=== PATIENT | female | born 1965 | race Caucasian/White ===

== ENCOUNTER → 2017-04-15 19:15 | Outpatient (CLI) | payer OTHER ==
[2015-06-07 09:36] VITALS: BMI 23.6
[~2017-04-15 19:15] MED LIST: ASPIRIN81 MG PO; EFFEXOR XR75 MG; FLUTICASONE PRO16 GM NASAL; HUMALOG 30100 UNITS/; HYDROCODONE-APA1 TAB PO; K-DUR20 MEQ PO; LASIX20 MG PO; LOPRESSOR25 MG PO; NORVASC5 MG PO; PRAVASTATIN SOD10 MG PO; REGLAN10 MG PO; SYNTHROID50 MCG PO; VITAMIN D250000 UNIT
== END | disposition home or self-care (01) ==
LOC: D.LABREF 19:15
DX: Z00.00 Encounter for general adult medical examination without abnormal findings (principal)

== ENCOUNTER 2017-05-09 08:18 | Outpatient (CLI) | payer OTHER ==
[2015-06-07 09:36] VITALS: BMI 23.6
== END 2017-05-09 08:42 ==
LOC: D.MAMMO 08:18
DX: Z12.31 Encounter for screening mammogram for malignant neoplasm of breast (principal)

== ENCOUNTER → 2017-08-01 14:27 | Outpatient (CLI) | payer OTHER ==
[2015-06-07 09:36] VITALS: BMI 23.6
== END | disposition home or self-care (01) ==
LOC: D.CT 14:27
DX: M54.12 Radiculopathy, cervical region (principal)

== ENCOUNTER 2018-05-15 08:00 | Outpatient (CLI) | payer OTHER ==
[2015-06-07 09:36] VITALS: BMI 23.6
== END 2018-05-15 09:00 | disposition home or self-care (01) ==
LOC: D.MAMMO 08:00
DX: Z12.31 Encounter for screening mammogram for malignant neoplasm of breast (principal)

== ENCOUNTER 2019-02-24 10:58 | Outpatient (CLI) | payer OTHER ==
[~2019-02-24] VITALS: Ht 177.8 cm; Wt 65.0 kg
--- NOTE | ~2019-02-24 | HEMODYNAMI ---
PATIENT:MARK VÁSQUEZ MEDICAL RECORD: [id number] : 65 LOCATION:[facility] ADMISSION DATE: 02/24/19 Generatedon:02/24/201915:16 Patient name: MARK VÁSQUEZ Patient #: [id number] SSN: : 1965 Date of study: 02/24/2019 Page: Of Hemodynamic Procedure Report Patient Data Patient Demographics Procedure consent was obtained First Name: MARK Gender: Female Last Name: FAHAD : 1965 Middle Initial: G Age: 53 year(s) Patient #: [id number] Race: Additional ID: [id number] Contact details Address: [address] [place] [address] [place] State: [place] City: [place] Zip code: [address] Past Medical History History of disease Date Diagnosis Comments Hypertension Diabetes Allergies Allergen Reaction Date Comments Reported Codeine 05/30/2015 Admission Admission Data Admission Date: 02/24/2019 Admission Time: 10:58 Procedure Procedure Types Cath Procedure Diagnostic Procedure LHC LHC w/Coronaries w/Grafts Sedation Charges Moderate Sedation up to 30 minutes PCI Procedure Coronary Stent Coronary Stent Initial Procedure Description Procedure Date Procedure Date: 02/24/2019 Procedure Start Time: 14:37 Procedure End Time: 15:12 Procedure Staff Name Function Canelo Rob MD Performing Physician Charlotte Leger RN Culinary Director Delvin Corado RT Scrub Hannah Shehean RT Monitor Procedure Data Cath Procedure Fluoroscopy Diagnostic fluoroscopy Total fluoroscopy Time: 9.2 time: 9.2 min min Diagnostic fluoroscopy Total fluoroscopy dose: 464 dose: 464 mGy mGy Contrast Material Contrast Material Type Amount (ml) Isovue 300 220 Entry Location Entry Primary Successful Side Size Upsize Upsize Entry Closure Succes sful Closure Location (Fr) 1 (Fr) 2 (Fr) Remarks Device Remarks Femoral Right 5 Fr 6 Fr Exoseal artery Short Estimated blood loss: 5 ml Diagnostic catheters Device Type Used For End Catheter Placement MULTIPACK Pigtail 5 Fr LV Angiography catheter MULTIPACK JL 4.0 5Fr Multi-vessel catheter Angiography MULTIPACK 3DRC 5Fr Multi-vessel catheter Angiography DIAGNOSTIC AR MOD 5Fr SVG Angiography Catheter ([id number]) DIAGNOSTIC Pigtail 5Fr Multi-vessel catheter ([id number]) Angiography Procedure Complications No complications Procedure Medications Medication Administration Route Dosage 0.9% NaCl I.V. 100 ml/hr Oxygen etCO2 Nasal cannula 2 l/min Lidocaine 2% added to field 20 Heparin Flush Bag added to field 2 bags (1000units/500ml NS) Versed I.V. 2 mg Fentanyl I.V. 50 mcg Fentanyl I.V. 50 mcg Heparin Bolus I.V. 5000 units Integrilin (Bolus 5.6 2mg/ml) Plavix P.O. 600 mg Cardene I.C. 500 mcg Hemodynamics Rest Heart Rate: 62 (bpm) Pressure Samples Time Site Value (mmHg) Purpose Heart Use Rate(bpm) 14:38 LV 180/9,17 Snapshot 66 14:39 AO 186/78(122) Pullback 70 14:39 LV 177/14,22 Pullback 70 Gradients Valve Time Site 1 Site 2 Mean SEP/DFP Peak To Heart Use (mmHg) (sec/min) Peak Rate (mmHg) (bpm) Aortic 14:39 LV AO 0 3 0 70 177/14,22 186/78(122) Calculations Valve P-P Mean Valve Index Valve Source Name Gradient Area Flow (cm2) Aortic 0 0 0 0 Snapshots Pre Cath Intra NCS Post Cath Vital Signs Time Heart Resp SPO2 etCO2 NIBP (mmHg) Rhythm Pain Sedation Rate (ipm) (%) (mmHg) Status Level (bpm) 14:07:41 63 12 99 39 186/93(159) NSR 0 (11) 10(A) , No pain 14:12:11 58 14 100 41.2 198/83(155) SB 0 (11) 10(A) , No pain 14:16:30 67 11 100 49.4 156/85(134) NSR 0 (11) 10(A) , No pain 14:20:51 59 13 100 45.7 169/80(145) SB 0 (11) 10(A) , No pain 14:25:14 57 13 100 38.9 156/74(127) SB 0 (11) 10(A) , No pain 14:29:38 60 11 100 50.2 154/74(134) NSR 0 (11) 10(A) , No pain 14:34:02 56 14 100 10.5 141/67(111) NSR 0 (11) 9(A) , No pain 14:39:18 64 17 100 49.4 163/76(105) NSR 0 (11) 9(A) , No pain 14:43:40 69 17 100 23.2 179/84(131) NSR 0 (11) 9(A) , No pain 14:48:10 68 10 100 20.2 167/75(128) NSR 0 (11) 9(A) , No pain 14:52:34 68 14 100 49.4 175/82(138) NSR 0 (11) 9(A) , No pain 14:56:52 69 16 100 47.9 156/81(128) NSR 0 (11) 9(A) , No pain 15:01:11 68 10 100 47.9 173/84(141) NSR 0 (11) 9(A) , No pain 15:05:08 72 11 100 24.7 148/75(89) NSR 0 (11) 9(A) , No pain 15:09:22 70 9 100 45.6 134/71(112) NSR 0 (11) 9(A) , No pain Medications Time Medication Route Dose Verified Delivered Reason Notes Effectiveness by by 14:05:58 0.9% NaCl I.V. 100 Canelo Porter used for ml/hr [facility] procedure MD WOODS 14:06:06 Oxygen etCO2 2 Canelo Porter used for Nasal l/min [facility] procedure cannula MD WOODS 14:06:12 Lidocaine 2% added 20ml Canelo Lemos for local to vial [facility] anesthetic field MD PRASAD 14:06:20 Heparin Flush added 2 Canelo Canelo used for Bag to bags [facility] procedure (1000units/500ml field MD PRASAD NS) 14:26:06 Fentanyl I.V. 50 Canelo Charlotte for sedation mcg [facility] MD, RN 14:26:58 Versed I.V. 2 mg Canelo Higginbothamyla for sedation [facility] MD, RN 14:31:48 Fentanyl I.V. 50 Canelo Higginbothamyla for sedation mcg [facility] Leg[facility] MD, RN 14:52:57 Heparin Bolus I.V. 5000 Canelo Charlotte for verif ied units LianeCuauhtemoc Leger anticoagulation with Dr. PRASAD RN Dayana 14:55:15 Integrilin 5.6mL Canelo Porter waste d (Bolus 2mg/ml) ml [facility] 4.4mL MD WOODS 14:55:45 Plavix P.O. 600 Can[address] for mg [facility] Leger antiplatelet RN therapy 15:04:59 Cardene I.C. 500 Canelo Lemos for mcg Liane [facility] Posadas vasodilation MD PRASAD Procedure Log Time Note 14:00:41 Charlotte Leger RN sent for patient. Start room use. 14:05:16 Diagnostic Cath Status : Elective 14:05:58 0.9% NaCl 100 ml/hr I.V. was administered by Charlotte Leger RN; used for procedure; 14:06:06 Oxygen 2 l/min etCO2 Nasal cannula was administered by Charlotte Leger RN; used for procedure; 14:06:12 Lidocaine 2% 20ml vial added to field was administered by Canelo Rob MD; for local anesthetic; 14:06:20 Heparin Flush Bag (1000units/500ml NS) 2 bags added to field was administered by Canelo Rob MD; used for procedure; 14:06:28 Vital chart was started 14:11:33 Informed consent obtained and on chart 14:11:50 Time tracking: Regular hours (M-F 7:00 - 5:00) 14:11:54 Plan of Care:Hemodynamics will remain stable., Cardiac rhythm will remain stable., Comfort level will be maintained., Respiratory function will remain adequate., Patient/ family verbilizes understanding of procedure., Procedure tolerated without complication., Recovers from procedure without complications.. 14:12:01 Patient received from Pre/Post Procedure Room to CCL 1 Alert and oriented. Tansferred to table in Supine position. 14:12:02 Warm blankets applied, and freddy hugger turned on for patient comfort. 14:12:02 Correct patient and procedure confirmed by team. 14:12:03 ECG and BP/O2 sat monitors applied to patient. 14:12:04 Baseline sample Acquired. 14:12:09 Rhythm: sinus rhythm 14:12:10 Full Disclosure recording started 14:12:14 H&P Date Dictated: 02/24/2019 Within 30 days and on chart., H&P Addendum completed by physician on day of procedure. (MUST COMPLETE FOR ALL OUTPATIENTS). 14:12:15 Pre-procedure instructions explained to patient. 14:12:19 Pre-op teaching completed and patient verbalized understanding. 14:12:21 Family in waiting room. 14:12:22 Patient NPO since Midnight. 14:12:24 Is the patient allergic to Iodine/contrast media? No. 14:12:25 Was the patient premedicated? No 14:12:37 Is patient on blood thinner?No 14:12:38 Patient diabetic? Yes. 14:12:44 Previous problem with sedation/anesthesia? Yes nausea 14:12:46 Snore? Yes 14:12:52 Sleep apnea? No 14:12:53 Deviated septum? No 14:12:54 Opens mouth fully? Yes 14:12:55 Sticks out tongue? Yes 14:12:58 Airway obstruction? No ? 14:13:04 Dentures? Yes partials 14:13:40 If diabetic: On Metformin? No 14:24:38 Pre procedure: right dorsailis pedis pulse 2+ Normal; easily identifiable; not easily obliterated 14:24:41 Pre procedure: left dorsailis pedis pulse 2+ Normal; easily identifiable; not easily obliterated 14:24:42 Patient pain scale 0/10 ?. 14:24:54 IV patent on arrival in left forearm with 0.9% NaCl at [facility]. 14:24:56 Lab results completed and on chart. 14:25:02 Right groin area was prepped with chlora-prep and draped in sterile fashion 14:25:04 Alarms reviewed by R. N. 14:25:04 Sharps counted by scrub and verified by R.N. 14:25:06 Physician arrived 14:25:06 --------ALL STOP TIME OUT------ 14:25:07 Final Timeout: patient, procedure, and site verified with staff and physician. All members of the team are in agreement. 14:25:08 Right groin site verified by team. 14:25:12 Maximum allowable Isovue 300 dose 300ml. Physician notified. (300ml for normal creatinines. For patients with creatinine of 1.7 or higher multiply weight(kg) x 5 divided by creatinine.) 14:25:15 Fire Safety Assessment: A--An alcohol-based skin anteseptic being used preoperatively., C--Open oxygen or nitrous oxide is being used., D--An ESU, laser, or fiber-optic light is being used. 14:25:30 Physical assessment completed. ASA score P 2 - A patient with mild systemic disease as per Canelo Rob MD. 14:25:38 Sedation plan: IV Moderate Sedation Medication:Versed, Fentanyl 14:26:06 Fentanyl 50 mcg I.V. was administered by Charlotte Leger RN; for sedation; 14:26:34 Use device set Femoral Dx 14:26:36 ACIST Syringe (62653) opened to sterile field. 14:26:37 Bag Decanter (2002S) opened to sterile field. 14:26:37 Medline Cath Pack ([id number]) opened to sterile field. 14:26:38 DIAGNOSTIC WIRE .035 260cm J wire (902518) opened to sterile field. 14:26:40 ACIST Hand Control (12920) opened to sterile field. 14:26:40 ACIST Manifold (80497) opened to sterile field. 14:26:41 DIAGNOSTIC Multipack 5Fr catheter set (PZ2574) opened to sterile field. 14:26:42 Tegaderm 4 x 4 (1626W) opened to sterile field. 14:26:43 SHEATH 5FR [place] (OOV817) opened to sterile field. 14:26:58 Versed 2 mg I.V. was administered by Charlotte Leger RN; for sedation; 14:31:48 Fentanyl 50 mcg I.V. was administered by Charlotte Leger RN; for sedation; 14:36:44 Zero performed for pressure channel P1 14:37:37 Procedure started. 14:37:56 Local anesthetic to right femoral artery with Lidocaine 2% by Canelo Rob MD.INITIAL ACCESS ONLY 14:38:11 A 5 Fr sheath was inserted into the Right Femoral artery 14:38:20 A MULTIPACK Pigtail 5 Fr catheter was advanced over the wire and used for LV Angiography. 14:38:43 LV hemodynamics recorded. 14:38:46 LV gram done using TEIXEIRA 14:38:48 Injector settings: Ml/sec: 5, Volume: 15, 14:38:59 EF : 55 % 14:39:19 Catheter removed. 14:39:46 A MULTIPACK JL 4.0 5Fr catheter was advanced over the wire and used for Multi-vessel Angiography. 14:40:00 POWELL angiography performed. 14:40:10 LCA angiography performed. 14:40:25 Injector settings: Ml/sec: 3, Volume: 6, 14:41:34 Catheter removed. 14:41:40 A MULTIPACK 3DRC 5Fr catheter was advanced over the wire and used for Multi-vessel Angiography. 14:42:34 RCA angiography performed. 14:42:37 Injector settings: Ml/sec: 3, Volume: 6, 14:43:23 Catheter removed. 14:43:43 A DIAGNOSTIC AR MOD 5Fr Catheter ([id number]) was advanced over the wire and used for SVG Angiography. 14:45:23 Catheter removed. 14:46:11 A DIAGNOSTIC Pigtail 5Fr catheter (996722M) was advanced over the wire and used for Multi-vessel Angiography. 14:46:17 Aortic Root visualized 14:48:48 Catheter removed. 14:49:15 SHEATH 6FR [place] (NYA696) opened to sterile field. 14:49:15 INFLATOR Merit BasixCompak (UN0994) opened to sterile field. 14:49:16 WHISPER 300cm guide wire ([id number]) opened to sterile field. 14:50:59 GUIDE 6FR JR 4.0 catheter ([id number]) opened to sterile field. 14:51:06 Proceeding to intervention. 14:51:20 Sheath upsized to a 6 Fr Short. 14:51:34 6 Fr jr 4 guide catheter was inserted over the wire 14:51:40 Guide Catheter removed. unable to cannulate vessel. 14:52:28 GUIDE 6FR HS I SH catheter ([id number]) opened to sterile field. 14:52:35 6 Fr hs 1 sh guide catheter was inserted over the wire 14:52:57 Heparin Bolus 5000 units I.V. was administered by Charlotte Leger RN; for anticoagulation; verified with Dr. Anne 14:53:25 whisper wire advanced. 14:53:30 Wire advanced across lesion. 14:55:15 Integrilin (Bolus 2mg/ml) 5.6mL ml was administered by Charlotte Leger RN; ; wasted 4.4mL 14:55:28 Inflate balloon Inflation number: 1 A EMERGE OTW 2.5 x 20 balloon ([id number]) was prepped and advanced across the Mid RCA, then inflated to 12 JJ for 0:30 (min:sec). 14:55:45 Plavix 600 mg P.O. was administered by Charlotte Leger RN; for antiplatelet therapy; 14:55:52 Inflation number: 2 The EMERGE OTW 2.5 x 20 balloon ([id number]) was reinflated across the Mid RCA, to 12 JJ for 0:30 (min:sec). 14:56:14 Inflation number: 3 The EMERGE OTW 2.5 x 20 balloon ([id number]) was reinflated across the Mid RCA, to 12 JJ for 0:10 (min:sec). 14:57:08 Balloon removed over the wire. 14:59:37 Place stent Inflation Number: 4 A KALPESH OTW 3.0 x 38 stent ([id number]) was prepped and advanced across the Mid RCA. The stent was deployed at 14 JJ for 0:30 (min:sec). 15:00:40 Stent catheter was removed intact over wire. 15:02:20 Place stent Inflation Number: 5 A KALPESH OTW 3.0 x 30 stent ([id number]) was prepped and advanced across the Mid RCA. The stent was deployed at 14 JJ for 0:30 (min:sec). 15:03:56 Stent catheter was removed intact over wire. 15:04:59 Cardene 500 mcg I.C. was administered by Canelo Rob MD; for vasodilation; 15:09:42 Place stent Inflation Number: 1 A KALPESH RX 3.0 x 26 stent ([id number]) was prepped and advanced across the Prox RCA. The stent was deployed at 14 JJ for 0:30 (min:sec). 15:09:47 Stent catheter was removed intact over wire. 15:09:49 Wire removed. 15:09:49 Guide catheter removed. 15:09:57 EXOSEAL 6Fr (EX600) opened to sterile field. 15:10:43 Sheath removed intact; hemostasis achieved with Exoseal to the Right Femoral artery. 15:10:45 Procedure ended.(Physican Out) 15::57 Fluoroscopy time 09.20 minutes. 15:11:01 Fluoroscopy dose: 464 mGy 15:11: Flurop Dose total: 464 15:11:07 Contrast amount:Isovue 300 220ml. 15:11:20 Sharps counted by scrub and verified by R.N. 15:11:22 Insertion/operative site no bleeding no hematoma. 15:11:26 Post-op/insertion site Right Femoral artery dressed using a 4 x 4 and Tegaderm. 15:11:28 Post Procedure Pulses reassessed and unchanged 15:11:31 Post procedure rhythm: unchanged. 15:11:38 Estimated blood loss: 5 ml 15:11:39 Post procedure instruction explained to patient.Patient verbalizes understanding. 15:11:40 Patient needs reinforcement of post procedure teaching. 15:12:19 Procedure type changed to Cath procedure, Diagnostic procedure, LHC, LHC w/Coronaries w/Grafts, Sedation Charges, Moderate Sedation up to 30 minutes, PCI procedure, Coronary Stent, Coronary Stent Initial 15:12:21 Procedure and supply charges have been captured, reviewed, submitted and are correct. 15:12:26 Procedure Complication : No complications 15:12:28 Vital chart was stopped 15:12:29 See physician's report for complete and final results. 15:12:31 Report given to Pre/Post Procedure Room. 15:12:34 Patient transfered to Pre/Post Procedure Room with Stretcher. 15:12:37 Procedure ended. 15:12:37 Full Disclosure recording stopped 15:12:44 ACC-PCI Only Patient was given prescriptions, or instructed by Charlotte Leger RN to start/continue the following medications upon discharge: Plavix 15:12:46 End room use (Document Last) Intervention Summary Intervention Notes Time ActionType Lesion and Equipment Used Action# Pressure Duration Attributes 14:55:28 Inflate Mid RCA EMERGE OTW 2.5 1 12 00:30 balloon x 20 balloon ([id number]) 14:55:52 Reinflate Mid RCA EMERGE OTW 2.5 2 12 00:30 balloon x 20 balloon ([id number]) 14:56:14 Reinflate Mid RCA EMERGE OTW 2.5 3 12 00:10 balloon x 20 balloon ([id number]) 14:59:37 Place stent Mid RCA KALPESH OTW 3.0 x 4 14 00:30 38 stent ([id number]) 15:02:20 Place stent Mid RCA KALPESH OTW 3.0 x 5 14 00:30 30 stent ([id number]) 15:09:42 Place stent Prox RCA KALPESH RX 3.0 x 1 14 00:30 26 stent ([id number]) Device Usage Item Name Manufacture Quantity Catalog Number Hospital Part Current Minimal Lot# / Charge Number Stock Stock Serial# Code ACIST Syringe Acist 1 80298 265126 570894 275968 20 (31575) Medical Systems Inc Bag Decanter Microtek 1 2001S 267180 97631 750553 5 () Medical Inc. Medline Cath Medline 1 [id number] 758222 33764 813241 5 Pack ([id number]) DIAGNOSTIC St Billy 1 325043 012773 080459 448539 30 WIRE .035 260cm J wire (354824) ACIST Hand Acist 1 17488 251486 483683 222886 5 Control Medical (67651) Systems Inc ACIST Manifold Acist 1 38156 414050 009612 624080 5 (07057) Medical Systems Inc DIAGNOSTIC Cardinal 1 CF3060 846423 54337 260886 30 Multipack 5Fr Health catheter set (II9560) Tegaderm 4 x 4 3M 1 1626W 386178 524027 679057 5 (1626W) SHEATH 5FR Terumo 1 [id number] 431318 334473 307576 5 [place] (XWM457) MULTIPACK Cardinal 1 161672 5 Pigtail 5 Fr Health catheter MULTIPACK JL Cardinal 1 880398 5 4.0 5Fr Health catheter MULTIPACK 3DRC Cardinal 1 849840 5 5Fr catheter Health DIAGNOSTIC AR Cardinal 1 [id number] 251399 459417 435235 15 MOD 5Fr Health Catheter (413724A) DIAGNOSTIC Cardinal 1 141165G 688372 035625 546379 5 Pigtail 5Fr Health catheter (662685Z) SHEATH 6FR Terumo 1 FPQ593 503002 609428 770339 40 [place] (VTP725) INFLATOR Merit Merit 1 IH3196 450091 444260 281301 15 [place] [employer] SSD[employer]Times [facility] (VD5221) WHISPER 300cm Matute 1 [id number] 883982 141589 543913 5 guide wire Vascular (9061255FI) GUIDE 6FR JR Medtronic 1 [id number] 998741 89304 348321 1 4.0 catheter (KA1FY90) GUIDE 6FR HS I Medtronic 1 [id number] 281035 13477 516295 1 SH catheter ([id number]) EMERGE OTW 2.5 [place] 1 [id number] 254271 801146 690943 5 [id number] x 20 balloon Scientific ([id number]) KALPESH OTW 3.0 x Medtronic 1 [id number] 827439 2428827 868346 5 [id number] 38 stent ([id number]) KALPESH OTW 3.0 x Medtronic 1 [id number] 961799 6095438 930109 5 [id number] 30 stent ([id number]) KALPESH RX 3.0 x Medtronic 1 [id number] 407363 0274836 433586 5 [id number] 26 stent ([id number]) EXOSEAL 6Fr Cardinal 1 EX600 205877 955230 349346 10 (EX600) Health Signature Audit [place] Stage Time Signature Unsigned Intra-Procedure 02/24/2019 Hannah Sheehan 3:16:40 PM RT(R) Signatures Monitor : Hannah Sheehan RT Signature : Date : Time : [place] [id number] [facility] [place] [address]
[2019-02-24] MEDS ORDERED: LISINOPRIL10 MG PO (11:21)
[2019-02-24] MEDS ORDERED: DEMEROL100 MG PO (11:21)
[2019-02-24] MEDS ORDERED: FOLBEE PLUS TAB1 TAB PO (11:22)
[2019-02-24] MEDS ORDERED: CRESTOR10 MG PO (11:22)
[2019-02-24 11:34] VITALS: BP 199/84; Ht 177.8 cm; Wt 65.0 kg
[2019-02-24 11:57] LABS: BASOPHILS 0.4 % (0-2); EOSINOPHILS 1.9 % (0-7); HEMATOCRIT 36.8 % (36.0-48.0); HEMOGLOBIN 12.8 g/dL (12-16); IMMATURE GRANULOCYTES 0.2 % (0-5); LYMPHOCYTES 34.8 % (15-50); MCH 29.7 pg (26.0-34.0); MCHC 34.8 g/dL (31.0-37.0); MCV 85.4 fL (80.0-100.0); MEAN PLATELET VOLUME 10.7 fL (7.4-10.4); MONOCYTES 6.8 % (2-11); NEUTROPHILS 55.9 % (40-80); RBC 4.31 10x6/uL (4.00-5.40); RDW 12.1 % (11.5-14.5); WBC 4.9 10x3/uL (4.8-10.8)
[2019-02-24 12:07] LABS: PLATELET COUNT 146 10x3/uL (130-400)
[2019-02-24 12:33] LABS: CALCIUM 9.6 mg/dL (8.5-10.1); CARBON DIOXIDE 29.6 mmol/L (21.0-32.0); CREATININE - SERUM 1.3 mg/dL (0.6-1.3); POTASSIUM - SERUM 4.6 mmol/L (3.5-5.1)
--- NOTE | 2019-02-24 15:30 | NUR ---
PT RECEIVED VIA STRETCHER FROM WIRELESS TELEGRAPHER FOR RECOVERY. PT SLEEPING BUT AWAKES TO VERBAL STIMULI. 6FR EXOCELE TO R GROIN, DRESSING CDI NO BLEEDING OR HEMATOMA NOTED. R LEG PINK AND WARM, PEDAL PULSES PALPABLE. HR SINUS PERNELL RATE 58, BP 141/84, O2 ON AT 2L/NC, SAT 99. IV PATENT INFUSING VIA ORDERS, CALL LIGHT IN REACH AND AT BEDSIDE. PT INSTRUCTED TO KEEP HEAD FLAT ON PILLOW AND R LEG STRAIGHT, SHE VERBALIZED UNDERSTANDING. PT C/O BEING COLD, BEAR HUGGER PLACED.
[2019-02-24] MEDS ORDERED: PLAVIX75 MG PO (15:31)
--- NOTE | 2019-02-24 15:45 | NUR ---
PT C/O NAUSEA, ORDERS RECEIVED. R GROIN SOFT, NO BLEEDING OR HEMATOMA NOTED. HR 45, BP 136/67. CALL LIGHT IN REACH
--- NOTE | 2019-02-24 15:54 | NUR ---
4MG ZOPRAN GIVEN IVP PER ORDERS.
--- NOTE | 2019-02-24 16:18 | NUR ---
PT RESTING COMFORTABLY, R GROIN DRESSING REMAINS CDI, LEG PINK AND WARM. PT STATES NAUSEA BETTER, VSS. AT BEDSIDE, CALL LIGHT IN REACH
--- NOTE | 2019-02-24 16:45 | NUR ---
PT PLACED ON BEDPAN, R GROIN DRESSING REMAINS CDI NO BLEEDING OR HEMATOMA NOTED. CALL LIGHT IN REACH, AT BEDSIDE
--- NOTE | 2019-02-24 17:15 | NUR ---
PT DOING WELL, RESTING COMFORTABLY. R GROIN DRESSING REMAINS CDI NO BLEEDING OR SWELLING NOTED. R LEG PINK AND WARM, PEDAL PULSES PALAPBLE. CALL LIGHT IN REACH, AT BEDSIDE
--- NOTE | 2019-02-24 17:45 | NUR ---
PT RESTING W/O COMPLAINTS. R GROIN DRESSING CDI NO BLEEDING OR HEMATOMA NOTED.
--- NOTE | 2019-02-24 18:12 | NUR ---
R GROIN REMAINS SOFT, NO BLEEDING OR HEMATOMA NOTED. HOB ELEVATED, DRINK AND FRUIT TRAY SERVED. O2 REMOVED, 02 SAT 100 ON ROOM AIR. PT DENIES PAIN OR ANY OTHER NEEDS AT THIS TIME. CALL LIGHT IN REACH, AT BEDSIDE
--- NOTE | 2019-02-24 18:34 | NUR ---
PT C/O HEADACHE, STATES SHE USUALLY TAKES IBUPROPHEN AT HOME THAT IS WHAT SHE WOULD PREFER. ORDERS RECEIVED. NO OTHER COMPLAINTS .
--- NOTE | 2019-02-24 18:46 | NUR ---
IBUPROPHEN 600MG GIVEN FOR C/O HEADACHE. DISCHARGE INSTRUCTIONS REVIEWED W PT AND , BOTH VERBALIZED UNDERSTANDING. PT INSTRUCTED ON IMPORTANCE OF TAKING PLAVIX EVERY DAY STARTING TOMORROW. R GROIN REMAINS SOFT, NO BLEEDING OR HEMATOMA NOTED TO SITE.
--- NOTE | 2019-02-24 18:58 | NUR ---
IV REMOVED W CATH INTACT, MONITORS REMOVED AND PT UP TO DRESS FOR DISCHARGE W ASSIST OF
--- NOTE | 2019-02-24 19:01 | NUR ---
PRESCRIPTION CALLED TO [facility] [address] PER PT REQUEST
--- NOTE | 2019-02-24 19:09 | NUR ---
PT AMBULATED TO BR VOIDING W/O DIFFICULITY. DISCHARGED VIA WC TO PRIVATE VEHICLE
--- NOTE | 2019-02-25 13:33 | OP ---
PATIENT NAME: MARK VÁSQUEZ MEDICAL RECORD: [id number] :65 LOCATION:D.CAT ADMISSION DATE: SURGEON: STEVE LÓPEZ MD DATE OF OPERATION: 02/24/2019 PROCEDURE: Left heart catheterization, selective coronary angiography, right femoral artery approach. CATHETERS: A 5-[place] sheath, 5/4 left and right Mayra, 5/4 pig. The procedure was well tolerated. The patient was returned to fitzgerald. Sheath was removed. ExoSeal device was placed. FINDINGS: Left ventriculography in 30-degree TEIXEIRA view: Normal wall motion and normal systolic function. AORTIC ROOT: Aortic root injection was done to assess bypass grafts, which showed no patent saphenous vein grafts. CORONARY ANATOMY: LEFT MAIN: Left main is free of disease. LAD: Fills for a short period of time and then seen filling via competitive flow via the POWELL. CIRCUMFLEX: Circumflex and both large OMs have typically severe diffuse diabetic disease of 80%. RIGHT CORONARY: It has severe diffuse diabetic disease. IMPRESSION: Loss of 2 saphenous grafts. We will need to do intervention in the right circumflex at later date. DESCRIPTION OF PROCEDURE: A 5-[place] sheath was exchanged for a 6-[place] sheath. Hockey stick guide catheter provided good guide catheter support followed by 300-cm Whisper wire placed across the tightly occluded right down this portion of the vessel. Predeployment balloon was 2.5 x 20 balloon. Stents were placed in the following fashion; a 3.0 x 38, a 3.0 x 38, and finally 3.0 x 24 all [place] drug-eluting stents up to 14 atmospheres for 45 seconds. Final angiography shows excellent resolution with no significant residual. DOLLY flow was 3 throughout the procedure. Heparin and Integrilin were used during the case. Plavix was loaded in the lab. Sheath was closed with ExoSeal device. TRANSINT:[id number] Voice Confirmation ID: [id number] DOCUMENT ID: [id number] STEVE LÓPEZ MD at 1333 CC: [id number] DICTATION DATE: 02/24/19 1519 MANAGER VEHICLE: 02/24/19 1724 DEP CLI 02/24/19 [place] [id number] [place] [address]
== END 2019-02-24 19:10 | disposition home or self-care (01) ==
LOC: D.CATH 10:58
PROVIDERS: ATTEND Internal Medicine Interventional Cardiology
DX: I25.110 Atherosclerotic heart disease of native coronary artery with unstable angina pectoris (principal)
CPT/HCPCS: C9600; 93459

== ENCOUNTER 2019-03-02 11:01 | Outpatient (CLI) | payer OTHER ==
[2019-03-02] VITALS (10 sets, daily range): BP systolic 107–177; BP diastolic 49–75; BMI 20.5; BMI 21.8
--- NOTE | ~2019-03-02 | HEMODYNAMI ---
PATIENT:MARK VSÁQUEZ MEDICAL RECORD: [id number] : 65 LOCATION:[facility] ADMISSION DATE: 03/02/19 Generatedon:03/02/201914:29 Patient name: MARK VÁSQUEZ Patient #: [id number] SSN: : 1965 Date of study: 03/02/2019 Page: Of Hemodynamic Procedure Report Patient Data Patient Demographics Procedure consent was obtained First Name: MARK Gender: Female Last Name: FAHAD : 1965 Middle Initial: G Age: 53 year(s) Patient #: [id number] Race: Additional ID: [id number] Contact details [address]: [address] [place] [address] [place] State: [place] City: [place] Zip code: [address] Past Medical History History of disease Date Diagnosis Comments Hypertension Diabetes Allergies Allergen Reaction Date Comments Reported Codeine 05/30/2015 Codeine 03/02/2019 Admission Admission Data Admission Date: 03/02/2019 Admission Time: 11:01 Procedure Procedure Types Cath Procedure PCI Procedure Coronary Stent Coronary Stent Initial Coronary Stent Additional Procedure Description Procedure Date Procedure Date: 03/02/2019 Procedure Start Time: 13:07 Procedure End Time: 14:22 Procedure Staff Name Function Canelo Rob MD Performing Physician Delvin Corado RT Monitor Hannah Sheehan RT Scrub Demarcus Causey RN Nurse Raven Pelayo RN Experimental Physicist Procedure Data Cath Procedure Fluoroscopy Diagnostic fluoroscopy Total fluoroscopy Time: time: 30.1 min 30.1 min Diagnostic fluoroscopy Total fluoroscopy dose: dose: 1566 mGy 1566 mGy Contrast Material Contrast Material Type Amount (ml) Isovue 300 240 Entry Location Entry Primary Successful Side Size Upsize Upsize Entry Closure Succes sful Closure Location (Fr) 1 (Fr) 2 (Fr) Remarks Device Remarks Femoral Left 6 Fr Exoseal artery Short Procedure Complications No complications Procedure Medications Medication Administration Route Dosage Oxygen etCO2 Nasal cannula 2 l/min Lidocaine 2% added to field 20 Heparin Flush Bag added to field 2 bags (1000units/500ml NS) 0.9% NaCl I.V. 100 ml/hr Zofran I.V. 4 mg Versed I.V. 2 mg Fentanyl I.V. 50 mcg Versed I.V. 1 mg Fentanyl I.V. 50 mcg Heparin Bolus I.V. 4000 units Versed I.V. 1 mg Versed I.V. 1 mg Heparin Bolus I.V. 2000 units Nitroglycerin IC/IA Nitroglycerin IC/IA I.C. 200 mcg 0.9% NaCl I.V. bolus 500 ml Heparin Bolus I.V. 1000 units Hemodynamics Rest Heart Rate: 64 (bpm) Snapshots Pre Cath Intra NCS Post Cath Vital Signs Time Heart Resp SPO2 etCO2 NIBP (mmHg) Rhythm Pain Sedation Rate (ipm) (%) (mmHg) Status Level (bpm) 12:54:02 64 20 100 36.7 207/91(165) NSR 0 (11) 10(A) , No pain 12:58:39 63 17 100 34.5 200/85(152) NSR 0 (11) 10(A) , No pain 13:03:09 64 11 100 26.2 168/78(124) NSR 0 (11) 10(A) , No pain 13:07:30 67 18 100 49.4 158/81(133) NSR 0 (11) 9(A) , No pain 13:11:49 68 15 100 47.9 152/76(127) NSR 0 (11) 9(A) , No pain 13:16:05 75 14 100 47.9 145/78(118) NSR 0 (11) 9(A) , No pain 13:20:22 71 10 100 48.7 152/80(119) NSR 0 (11) 9(A) , No pain 13:24:42 69 10 100 37.4 156/75(105) NSR 0 (11) 9(A) , No pain 13:29:02 70 18 100 39.7 151/72(123) NSR 0 (11) 9(A) , No pain 13:33:22 66 15 100 44.2 159/76(135) NSR 0 (11) 9(A) , No pain 13:37:44 66 11 100 48.6 167/83(135) NSR 0 (11) 9(A) , No pain 13:42:02 71 14 100 47.1 158/85(127) NSR 0 (11) 9(A) , No pain 13:46:24 72 13 100 44.9 169/84(122) NSR 0 (11) 9(A) , No pain 13:50:49 75 14 100 38.1 162/84(131) NSR 0 (11) 9(A) , No pain 13:55:11 67 14 100 43.4 162/82(133) NSR 0 (11) 9(A) , No pain 13:59:33 68 16 100 44.9 157/80(104) NSR 0 (11) 9(A) , No pain 14:03:53 63 14 100 33.7 160/81(133) NSR 0 (11) 9(A) , No pain 14:08:19 60 15 100 44.1 154/74(129) NSR 0 (11) 9(A) , No pain 14:12:33 64 12 100 39.6 89/53(65) NSR 0 (11) 9(A) , No pain 14:16:37 59 17 100 36.7 97/53(79) NSR 0 (11) 10(A) , No pain 14:20:41 63 18 100 38.9 115/68(93) NSR 0 (11) 10(A) , No pain Medications Time Medication Route Dose Verified Delivered Reason Notes Effectiveness by by 12:49:36 Oxygen etCO2 2 Canelo Carbajal used for Nasal l/min [facility] Cuauhtemoc Pelayo RN procedure cannula 12:50:06 Lidocaine 2% added 20ml Canelo Lemos for local to vial [facility] anesthetic field MD PRASAD 12:50:12 Heparin Flush added 2 Canelo Canelo used for Bag to bags [facility] procedure (1000units/500ml field MD PRASAD NS) 12:50:25 0.9% NaCl I.V. 100 Canelo Carbajal Per physician ml/hr [facility] Cu[facility]emoc Pelayo RN, MD 12:55:32 Zofran I.V. 4 mg Canelo Carbajal for nausea [facility] Cu[facility]emoc Pelayo RN, MD 13:03:03 Fentanyl I.V. 50 Canelo Leydiie for sedation mcg [facility] Cuauhtemoc Pelayo RN, MD 13:03:55 Versed I.V. 2 mg Canelo Carbajal for sedation [facility] Cu[facility]oc Pelayo RN, MD 13:08:49 Versed I.V. 1 mg Canelo Leydiie for sedation [facility] Cuau[facility]emoc Pelayo RN, MD 13:08:53 Fentanyl I.V. 50 Canelo Leydiie for sedation mcg [facility] Cu[facility]emoc Pelayo RN, MD 13:09:46 Heparin Bolus I.V. 4000 Canelo Buffie for verif ied units [facility] Cuauhtemoc Pelayo RN anticoagulation with dr MD cain 13:17:49 Versed I.V. 1 mg Canelo Holleyie for sedation [facility] Cu[facility]emoc Pelayo RN, MD 13:27:14 Versed I.V. 1 mg Canelo Buffie for sedation [facility] Cuauhtemoc Pelayo RN, MD 13:30:03 Heparin Bolus I.V. 2000 Canelo Leydiie for verif ied units [facility] Cuauhtemoc Pelayo RN anticoagulation with dr MD cain 13:59:34 Nitroglycerin mixed Canelo Buffie IC/IA and [facility] Cu[facility] Pelayo RN on MD field 14:11:12 Nitroglycerin I.C. 200 Canelo Dasory for IC/IA mcg [facility] Cuauhtemoc Cordova MD, MD 14:13:12 0.9% NaCl I.V. 500 Canelo Carbajal Per physician bolus ml [facility] Cuauhtemoc Pelayo RN, MD 14:16:55 Heparin Bolus I.V. 1000 Canelo Holleyie for verif ied units [facility] Cuauhtemoc Pelayo RN anticoagulation with dr MD cain Procedure Log Time Note 12:14:14 Diagnostic Cath Status : Elective 12:14:36 Time tracking: Regular hours (M-F 7:00 - 5:00) 12:14:41 Plan of Care:Hemodynamics will remain stable., Cardiac rhythm will remain stable., Comfort level will be maintained., Respiratory function will remain adequate., Patient/ family verbilizes understanding of procedure., Procedure tolerated without complication., Recovers from procedure without complications.. 12:15:34 Demarcus Causey RN sent for patient. Start room use. 12:45:39 Patient received from Pre/Post Procedure Room to CCL 1 Alert and oriented. Tansferred to table in Supine position. 12:45:40 Warm blankets applied, and freddy hugger turned on for patient comfort. 12:45:41 Correct patient and procedure confirmed by team. 12:45:44 Signed procedure consent form obtained from patient. 12:45:46 ECG and BP/O2 sat monitors applied to patient. 12:49:36 Oxygen 2 l/min etCO2 Nasal cannula was administered by Buffie Pelayo RN; used for procedure; 12:49:58 Rhythm: sinus rhythm 12:49:59 Full Disclosure recording started 12:50:00 Pre-procedure instructions explained to patient. 12:50:01 Pre-op teaching completed and patient verbalized understanding. 12:50:03 Family in patients room. 12:50:05 Patient NPO since Midnight. 12:50:06 Lidocaine 2% 20ml vial added to field was administered by Canelo Rob MD; for local anesthetic; 12:50:12 Heparin Flush Bag (1000units/500ml NS) 2 bags added to field was administered by Canelo Rob MD; used for procedure; 12:50:18 Patient allergic to Codeine 12:50:25 0.9% NaCl 100 ml/hr I.V. was administered by Raven Pelayo RN; Per physician; 12:50:30 Is patient on blood thinner?Yes 12:50:32 ACC The patient was administered the following blood thiners within the last 24 hours: ACCPlavix 12:50:35 Patient diabetic? Yes. 12:50:41 If diabetic: On Metformin? No 12:50:57 Previous problem with sedation/anesthesia? No ? 12:50:59 Snore? Yes 12:51:00 Sleep apnea? No 12:51:02 Deviated septum? No 12:51:03 Opens mouth fully? Yes 12:51:04 Sticks out tongue? Yes 12:51:06 Airway obstruction? No ? 12:51:12 Dentures? Yes PARTIAL 12:51:17 Pre procedure: right dorsailis pedis pulse 1+ Palpable, but thready & weak; easily obliterated 12:51:19 Patient pain scale 0/10 ?. 12:51:23 IV patent on arrival in left hand with 0.9% NaCl at [facility]. 12:51:26 Lab results completed and on chart. 12:51:30 Left groin area was prepped with chlora-prep and draped in sterile fashion 12:51:31 Alarms reviewed by R. N. 12:51:31 Sharps counted by scrub and verified by R.N. 12:51:43 Vital chart was started 12:54:08 Use device set CATH PACK 12:54:09 ACIST Syringe (11007) opened to sterile field. 12:54:10 ACIST Hand Control (85170) opened to sterile field. 12:54:10 ACIST Manifold (63036) opened to sterile field. 12:54:10 Medline Cath Pack ([id number]) opened to sterile field. 12:54:11 Bag Decanter (2002) opened to sterile field. 12:54:11 DIAGNOSTIC WIRE .035 260cm J wire (698412) opened to sterile field. 12:54:27 WHISPER 300cm guide wire ([id number]) opened to sterile field. 12:54:27 INFLATOR Merit BasixCompak (CM0720) opened to sterile field. 12:54:28 SHEATH 6FR [place] (FHV139) opened to sterile field. 12:54:33 Baseline sample Acquired. 12:55:32 Zofran 4 mg I.V. was administered by Raven Pelayo RN; for nausea; 13:00:08 --------ALL STOP TIME OUT------ 13:00:08 Final Timeout: patient, procedure, and site verified with staff and physician. All members of the team are in agreement. 13:00:10 Left groin site verified by team. 13:00:12 Maximum allowable Isovue 300 dose 300ml. Physician notified. (300ml for normal creatinines. For patients with creatinine of 1.7 or higher multiply weight(kg) x 5 divided by creatinine.) 13:00:16 Fire Safety Assessment: A--An alcohol-based skin anteseptic being used preoperatively., C--Open oxygen or nitrous oxide is being used., D--An ESU, laser, or fiber-optic light is being used. 13:00:20 Physical assessment completed. ASA score P 2 - A patient with mild systemic disease as per Canelo Rob MD. 13:00:23 Sedation plan: IV Moderate Sedation Medication:Versed, Fentanyl 13:03:03 Fentanyl 50 mcg I.V. was administered by Raven Pelayo RN; for sedation; 13:03:55 Versed 2 mg I.V. was administered by Raven Pelayo RN; for sedation; 13:05:06 Zero performed for pressure channel P1 13:07:00 Procedure started. 13:07:14 Local anesthetic to left femerol artery with Lidocaine 2% by Canelo Rob MD.INITIAL ACCESS ONLY 13:07:18 Zero performed for pressure channel P1 13:08:24 GUIDE 6FR JL 4.0 catheter ([id number]) opened to sterile field. 13:08:49 Versed 1 mg I.V. was administered by Raven Pelayo RN; for sedation; 13:08:53 Fentanyl 50 mcg I.V. was administered by Raven Pelayo RN; for sedation; 13:09:04 A 6 Fr Short sheath was inserted into the Left Femoral artery 13:09:13 6 Fr JL 4 guide catheter was inserted over the wire 13:09:46 Heparin Bolus 4000 units I.V. was administered by Raven Pelayo RN; for anticoagulation; verified with dr cain 13:11:33 WHISPER 300 wire advanced. 13:12:59 Inflate balloon Inflation number: 1 A EMERGE OTW 2.5 x 20 balloon ([id number]) was prepped and advanced across the Mid CX, then inflated to 10 JJ for 0:15 (min:sec). 13:13:28 Inflation number: 2 The EMERGE OTW 2.5 x 20 balloon ([id number]) was reinflated across the Mid CX, to 12 JJ for 0:15 (min:sec). 13:14:05 Inflation number: 3 The EMERGE OTW 2.5 x 20 balloon ([id number]) was reinflated across the Mid CX, to 12 JJ for 0:15 (min:sec). 13:14:50 Inflation number: 4 The EMERGE OTW 2.5 x 20 balloon ([id number]) was reinflated across the Mid CX, to 14 JJ for 0:10 (min:sec). 13:15:11 Balloon removed over the wire. 13:17:49 Versed 1 mg I.V. was administered by Raven Pelayo RN; for sedation; 13:19:35 The KLAPESH OTW 2.5 x 38 stent ([id number]) was advanced then removed because of failure to cross lesion 13:21:38 CHOICE PT Extra Support J 300cm guide wire ([id number]) opened to sterile field. 13:21:53 WHISPER WIRE EXCHANGED WITH CHOICE ES WIRE 13:22:48 Inflation number: 5 The EMERGE OTW 2.5 x 20 balloon ([id number]) was reinflated across the Mid CX, to 14 JJ for 0:00 (min:sec). 13:23:10 Balloon removed over the wire. 13:25:43 Place stent Inflation Number: 6 A KALPESH OTW 2.5 x 18 stent ([id number]) was prepped and advanced across the Mid CX. The stent was deployed at 14 JJ for 0:10 (min:sec). 13:26:24 Stent catheter was removed intact over wire. 13:27:14 Versed 1 mg I.V. was administered by Raven Pelayo RN; for sedation; 13:29:19 Place stent Inflation Number: 1 A KALPESH OTW 2.5 x 38 stent ([id number]) was prepped and advanced across the Dist CX. The stent was deployed at 12 JJ for 0:10 (min:sec). 13:29:33 Stent catheter was removed intact over wire. 13:30:03 Heparin Bolus 2000 units I.V. was administered by Raven Pelayo RN; for anticoagulation; verified with dr cain 13:34:01 Place stent Inflation Number: 7 A KALPESH OTW 3.0 x 26 stent ([id number]) was prepped and advanced across the Mid CX. The stent was deployed at 14 JJ for 0:10 (min:sec). 13:34:34 Stent catheter was removed intact over wire. 13:37:48 Place stent Inflation Number: 1 A KALPESH RX 3.0 x 15 stent ([id number]) was prepped and advanced across the Prox CX. The stent was deployed at 14 JJ for 0:10 (min:sec). 13:37:51 Stent catheter was removed intact over wire. 13:38:16 Wire removed. 13:39:37 WHISPER 300cm guide wire ([id number]) opened to sterile field. 13:40:09 WHISPER 300 wire advanced. 13:43:21 Inflate balloon Inflation number: 1 A EMERGE OTW 2.5 x 15 balloon ([id number]) was prepped and advanced across the 1st Ob Fidelia, then inflated to 8 JJ for 0:23 (min:sec). 13:44:06 Inflation number: 2 The EMERGE OTW 2.5 x 15 balloon ([id number]) was reinflated across the 1st Ob Fidelia, to 12 JJ for 0:10 (min:sec). 13:45:05 Inflation number: 3 The EMERGE OTW 2.5 x 15 balloon ([id number]) was reinflated across the 1st Ob Fidelia, to 12 JJ for 0:23 (min:sec). 13:45:48 Procedure type changed to Cath procedure, PCI procedure, Coronary Stent, Coronary Stent Initial, Coronary Stent Additional 13:46:00 Balloon removed over the wire. 13:49:02 Place stent Inflation Number: 4 A KALPESH OTW 2.5 x 08 stent ([id number]) was prepped and advanced across the 1st Ob Fidelia. The stent was deployed at 14 JJ for 0:26 (min:sec). 13:49:28 Stent catheter was removed intact over wire. 13:52:31 The KALPESH OTW 2.5 x 38 stent ([id number]) was advanced then removed because of failure to cross lesion 13:55:49 The KALPESH OTW 2.5 x 18 stent ([id number]) was advanced then removed because of failure to cross lesion 13:58:31 Inflation number: 5 The EMERGE OTW 2.5 x 15 balloon ([id number]) was reinflated across the 1st Ob Fidelia, to 0 JJ for 0:00 (min:sec). 13:58:35 Wire removed. 13:58:49 CPTES wire advanced. 13:59:10 CHOICE PT Extra Support J 300cm guide wire ([id number]) opened to sterile field. 13:59:32 Inflation number: 6 The EMERGE OTW 2.5 x 15 balloon ([id number]) was reinflated across the 1st Ob Fidelia, to 14 JJ for 0:11 (min:sec). 13:59:34 Nitroglycerin IC/IA mixed and on field was administered by Raven Pelayo RN; ; 13:59:52 Inflation number: 7 The EMERGE OTW 2.5 x 15 balloon ([id number]) was reinflated across the 1st Ob Fidelia, to 14 JJ for 0:17 (min:sec). 14:00:28 Inflation number: 8 The EMERGE OTW 2.5 x 15 balloon ([id number]) was reinflated across the 1st Ob Fidelia, to 14 JJ for 0:12 (min:sec). 14:00:57 Inflation number: 9 The EMERGE OTW 2.5 x 15 balloon ([id number]) was reinflated across the 1st Ob Fidelia, to 14 JJ for 0:11 (min:sec). 14:01:29 Balloon removed over the wire. 14:04:23 Place stent Inflation Number: 10 A KALPESH OTW 2.5 x 18 stent ([id number]) was prepped and advanced across the 1st Ob Fidelia. The stent was deployed at 14 JJ for 0:17 (min:sec). 14:04:58 Stent catheter was removed intact over wire. 14:08:31 Place stent Inflation Number: 11 A KALPESH RX 3.0 x 15 stent ([id number]) was prepped and advanced across the 1st Ob Fidelia. The stent was deployed at 14 JJ for 0:32 (min:sec). 14:11:01 Stent catheter was removed intact over wire. 14:11:12 Nitroglycerin IC/IA 200 mcg I.C. was administered by Canelo Rob MD; for vasodilation; 14:13:12 0.9% NaCl 500 ml I.V. bolus was administered by Raven Pelayo RN; Per physician; 14:16:55 Heparin Bolus 1000 units I.V. was administered by Raven Pelayo RN; for anticoagulation; verified with dr cain 14:18:29 Inflation number: 2 The EMERGE OTW 2.5 x 15 balloon ([id number]) was reinflated across the Prox CX, to 6 JJ for 0:28 (min:sec). 14:18:32 Balloon removed over the wire. 14:18:32 Wire removed. 14:18:33 Guide catheter removed. 14:18:49 Sheath removed intact; hemostasis achieved with Exoseal to the Left Femoral artery. 14:18:55 Contrast amount:Isovue 300 240ml. 14:18:57 Procedure ended.(Physican Out) 14:19:11 Fluoroscopy time 30.10 minutes. 14:19:16 Flurop Dose total: 1566 14:19:16 Fluoroscopy dose: 1566 mGy 14:19:19 Sharps counted by scrub and verified by R.N. 14:19:21 Insertion/operative site no bleeding no hematoma. 14:19:24 Post-op/insertion site Right Femoral artery dressed using a 4 x 4 and Tegaderm. 14:20:26 Post right femoral artery:stable 14:20:43 FEMSTOP Gold (R71834) opened to sterile field. 14:20:59 Femstop placed over the right femoral artery at 135 mmHg. Hemostasis achieved. 14:21:15 Post procedure rhythm: unchanged. 14:21:16 Post procedure instruction explained to patient.Patient verbalizes understanding. 14:21:24 Procedure and supply charges have been captured, reviewed, submitted and are correct. 14:21:48 EXOSEAL 6Fr (EX600) opened to sterile field. 14:22:01 Procedure Complication : No complications 14:22:03 Vital chart was stopped 14:22:04 See physician's report for complete and final results. 14:22:09 Report given to Pre/Post Procedure Room. 14:22:13 Patient transfered to Pre/Post Procedure Room with Stretcher. 14:22:15 Procedure ended. 14:22:15 Full Disclosure recording stopped 14:22:18 End room use (Document Last) Intervention Summary Intervention Notes Time ActionType Lesion and Equipment Used Action# Pressure Duration Attributes 13:12:59 Inflate Mid CX EMERGE OTW 2.5 1 10 00:15 balloon x 20 balloon ([id number]) 13:13:28 Reinflate Mid CX EMERGE OTW 2.5 2 12 00:15 balloon x 20 balloon ([id number]) 13:14:05 Reinflate Mid CX EMERGE OTW 2.5 3 12 00:15 balloon x 20 balloon ([id number]) 13:14:50 Reinflate Mid CX EMERGE OTW 2.5 4 14 00:10 balloon x 20 balloon ([id number]) 13:19:35 Discard KALPESH OTW 2.5 x Stent 38 stent ([id number]) 13:22:48 Reinflate Mid CX EMERGE OTW 2.5 5 14 00:00 balloon x 20 balloon ([id number]) 13:25:43 Place stent Mid CX KALPESH OTW 2.5 x 6 14 00:10 18 stent ([id number]) 13:29:19 Place stent Dist CX KALPESH OTW 2.5 x 1 12 00:10 38 stent ([id number]) 13:34:01 Place stent Mid CX KALPESH OTW 3.0 x 7 14 00:10 26 stent ([id number]) 13:37:48 Place stent Prox CX KALPESH RX 3.0 x 1 14 00:10 15 stent ([id number]) 13:43:21 Inflate 1st Ob Fidelia EMERGE OTW 2.5 1 8 00:23 balloon x 15 balloon ([id number]) 13:44:06 Reinflate 1st Ob Fidelia EMERGE OTW 2.5 2 12 00:10 balloon x 15 balloon ([id number]) 13:45:05 Reinflate 1st Ob Fidelia EMERGE OTW 2.5 3 12 00:23 balloon x 15 balloon ([id number]) 13:49:02 Place stent 1st Ob Fidelia KALPESH OTW 2.5 x 4 14 00:26 08 stent ([id number]) 13:52:31 Discard KALPESH OTW 2.5 x Stent 38 stent ([id number]) 13:55:49 Discard KALPESH OTW 2.5 x Stent 18 stent ([id number]) 13:58:31 Reinflate 1st Ob Fidelia EMERGE OTW 2.5 5 0 00:00 balloon x 15 balloon ([id number]) 13:59:32 Reinflate 1st Ob Fidelia EMERGE OTW 2.5 6 14 00:11 balloon x 15 balloon ([id number]) 13:59:52 Reinflate 1st Ob Fidelia EMERGE OTW 2.5 7 14 00:17 balloon x 15 balloon ([id number]) 14:00:28 Reinflate 1st Ob Fidelia EMERGE OTW 2.5 8 14 00:12 balloon x 15 balloon ([id number]) 14:00:57 Reinflate 1st Ob Fidelia EMERGE OTW 2.5 9 14 00:11 balloon x 15 balloon ([id number]) 14:04:23 Place stent 1st Ob Fiedlia KALPESH OTW 2.5 x 10 14 00:17 18 stent ([id number]) 14:08:31 Place stent 1st Ob Fidelia KALPESH RX 3.0 x 11 14 00:32 15 stent ([id number]) 14:18:29 Reinflate Prox CX EMERGE OTW 2.5 2 6 00:28 balloon x 15 balloon ([id number]) Device Usage Item Name Manufacture Quantity Catalog Number Hospital Part Current Minimal Lot# / Charge Number Stock Stock Serial# Code ACIST Syringe Acist 1 79215 961988 504378 985745 20 (02698) Savant Systems ACIST Hand Acist 1 33850 748974 277687 159928 5 Control OpenSky (29702) Systems Inc ACIST Manifold Acist 1 17181 645340 367772 553387 5 (41748) Medical Systems Inc Medline Cath Medline 1 [id number] 259824 05893 296231 5 Pack ([id number]) Bag Decanter Microtek 1 2001S 852228 96226 168075 5 () Medical Inc. DIAGNOSTIC St Billy 1 243896 708511 863492 337846 30 WIRE .035 260cm J wire (643302) WHISPER 300cm Matute 2 [id number] 300920 019176 099376 5 guide wire Vascular ([id number]) INFLATOR Merit Merit 1 NJ4197 328570 021368 879856 15 Beautified (IZ3776) SHEATH 6FR Terumo 1 UBI343 793205 260188 376351 40 [place] (MXA323) GUIDE 6FR JL Medtronic 1 [id number] 765023 27999 627565 1 4.0 catheter ([id number]) EMERGE OTW 2.5 [place] 1 [id number] 489863 804118 838935 5 [id number] x 20 balloon Scientific ([id number]) KALPESH OTW 2.5 x Medtronic 2 [id number] 251605 98045 503515 5 [id number] 38 stent [id number] ([id number]) CHOICE PT [place] 2 [id number] 721827 117280 167282 5 Extra Support Scientific J 300cm guide wire ([id number]) KALPESH OTW 2.5 x Medtronic 2 [id number] 780844 13026 170493 5 [id number] 18 stent [id number] ([id number]) KALPESH OTW 3.0 x Medtronic 1 [id number] 632974 5649200 830371 5 [id number] 26 stent ([id number]) KALPESH RX 3.0 x Medtronic 2 [id number] 450970 0466456 728281 5 [id number] 15 stent [id number] ([id number]) EMERGE OTW 2.5 [place] 1 [id number] 954260 009948 499115 5 29633296 x 15 balloon Scientific ([id number]) KALPESH OTW 2.5 x Medtronic 1 [id number] 132492 01550 777679 5 [id number] 08 stent ([id number]) FEMSTOP Gold St Billy 1 [id number] 193848 273144 956029 5 ([id number]) EXOSEAL 6Fr Cardinal 1 EX600 790035 809069 682779 10 (EX600) Health Signature Audit [place] Stage Time Signature Unsigned Intra-Procedure 03/02/2019 Delvin Corado RT(R) 2:29:49 PM Signatures Monitor : Delvin Corado RT Signature : Date : Time : [address] [address]
[~2019-03-02 11:01] MED LIST changes: +CRESTOR10 MG PO; +DEMEROL100 MG PO; +FOLBEE PLUS TAB1 TAB PO; +LISINOPRIL10 MG PO; +PLAVIX75 MG PO
[2019-03-02 11:43] LABS: BASOPHILS 0.5 % (0-2); EOSINOPHILS 2.6 % (0-7); HEMATOCRIT 34.4 % (36.0-48.0); HEMOGLOBIN 11.7 g/dL (12-16); LYMPHOCYTES 28.8 % (15-50); MCH 29.5 pg (26.0-34.0); MCV 86.9 fL (80.0-100.0); MEAN PLATELET VOLUME 11.1 fL (7.4-10.4); NEUTROPHILS 62.1 % (40-80); PLATELET COUNT 154 10x3/uL (130-400); RBC 3.96 10x6/uL (4.00-5.40); RDW 12.4 % (11.5-14.5); WBC 4.2 10x3/uL (4.8-10.8)
[2019-03-02 11:50] LABS: ANION GAP 12.1 mmol/L (8-16); CALCIUM 9.6 mg/dL (8.5-10.1); CARBON DIOXIDE 29.4 mmol/L (21.0-32.0); CREATININE - SERUM 1.3 mg/dL (0.6-1.3); POTASSIUM - SERUM 4.5 mmol/L (3.5-5.1)
--- NOTE | 2019-03-02 14:45 | NUR ---
RECIEVED TO ROOM VIA STRETCHER FROM ASIAN ART CURATOR WITH FEMSTOP TO L/GROIN PRESSURE AT 43 HEMATOMA IS MARKED FOR OBSERVATION. BP 75/41 WITH HR OF 52. DR LÓPEZ NOTIFIED. 1500 DR LÓPEZ PRESENT AT BEDSIDE WITH HR 50 BP 80/42 PATIENT PUT IN [place] WITH FLUIDS ON PUMP AT 250 CC/HR ORDERES FOR 1 MG ATROPINE. 1 MG ATROPINE GIVEN DIRECTED WITH DR LÓPEZ AT BEDSIDE. PATIENT TO BE ADMITTED FOR OBSERVATION WITH RUBBER VULCANIZING MACHINE OPERATOR NOTIFIED.
--- NOTE | 2019-03-02 15:15 | NUR ---
FEMSTOP REMAINS IN PLACE WITH HR 56 BP 90/46 WITH FLUIDS INFUSING AT 250 ON PUMP. CYDNEY MARTINEZ AT BEDSIDE WITH PRESSUR TO FEMSTOP LOWERED.
--- NOTE | 2019-03-02 15:30 | NUR ---
PRESSURE ON FEMSTOP REMOVED WITH BELT IN PLACE. BP NOW UP TO 113/54 WITH HR OF 57 CHEST PAIN IS DENIED
[2019-03-02 16:16] LABS: BASOPHILS 0.4 % (0-2); EOSINOPHILS 2.6 % (0-7); HEMATOCRIT 28.6 % (36.0-48.0); HEMOGLOBIN 9.5 g/dL (12-16); MCH 29.2 pg (26.0-34.0); MCHC 33.2 g/dL (31.0-37.0); MEAN PLATELET VOLUME 10.7 fL (7.4-10.4); MONOCYTES 7.3 % (2-11); NEUTROPHILS 58.7 % (40-80); PLATELET COUNT 139 10x3/uL (130-400); RBC 3.25 10x6/uL (4.00-5.40); RDW 12.4 % (11.5-14.5); WBC 4.7 10x3/uL (4.8-10.8)
--- NOTE | 2019-03-02 17:51 | NUR ---
MORPHING GIVEN SLOWLY AND PATIENT STATES THAT AT 2MG APPEARS TO BE ENOUGH AT PRESENT. FULL 10MG DOSE NOT GIVEN.
--- NOTE | 2019-03-02 19:01 | NUR ---
REPORT RECEIVED, CARE ASSUMED. PT IS RESTING IN BED WITH EYES CLOSED AT THIS TIME. INITIAL ASSESSMENT COMPLETED, SEE FLOWSHEET FOR DETAILS. PT DENIES NEEDS AT THIS TIME. WILL CONTINUE TO MONITOR.
--- NOTE | 2019-03-02 21:35 | NUR ---
RECEIVED ORDERS TO MOVE PT TO MED SURG FLOOR FOR OBSERVATION. REPORT CALLED TO RECEIVING PEGGY RUIZ. NO SIGNS OF ACUTE DISTRESS NOTED AT THIS TIME. WILL CONTINUE TO MONITOR.
[2019-03-03 04:00] VITALS: BP 97/36
[2019-03-03 07:55] VITALS: BP 102/52
--- NOTE | 2019-03-03 08:49 | OP ---
PATIENT NAME: MARK VÁSQUEZ MEDICAL RECORD: [id number] :65 LOCATION:D.M2 D.2114 ADMISSION DATE:03/02/19 SURGEON: STEVE LÓPEZ MD DATE OF OPERATION: 03/02/2019 PROCEDURE: PTCA stent on the circ OM. DESCRIPTION OF PROCEDURE: After a 6-Pashto sheath was placed to the left femoral artery, a JL4 guiding catheter provided a fair guide catheter support followed by a 300 cm Whisper wire, which was placed across the diffusely severely diseased circumflex artery initially. Pre-deployment balloon used was a 2.5 x 20. Initial inflation showed marked spiral dissection with contrast hanging up throughout the vessel. Stents were placed in the following fashion: A 2.5 x 18, 2.5 x 38, 3.0 x 26, and finally 3.0 x 15, all Frandy drug-eluting stents up to 14 atmospheres for 5 seconds shows excellent resolution of the severely diffuse typical diabetic disease, greatest of 90%, to no significant residual. Attention was then returned to the OM. This was crossed with a Whisper wire, then we took a 2.5 x 15 balloon down distal to the lesion and using the balloon as a change catheter, we exchanged out for a PT extra support wire. Then, the balloon was then inflated up and down the OM with marked dissection. Stents were then placed in the following fashion: A 2.5 x 8, 2.5 x 18, and finally 3.0 x 15 mm Frandy drug-eluting stent up to 14 atmospheres for 45 seconds. Final angiography shows excellent resolution of severely diffuse, again typical diabetic stenosis to no significant residual. DOLLY flow was 3 throughout the procedure. Sheath closed with ExoSeal device. The patient was previously loaded on Plavix. TRANSINT:[id number] Voice Confirmation ID: [id number] DOCUMENT ID: [id number] STEVE LÓPEZ MD at 0849 CC: [id number] DICTATION DATE: 03/02/19 1451 LECTURER OF [place]UG[place]: 03/02/19 1548 ADM IN [place] [address] [place] [address]
--- NOTE | 2019-03-03 10:28 | NUR ---
IV AND TELEMETRY DCD. DC PLANS GIVEN. UNDERSTANDING VOICED. DOES NOT WANT W/C. LEAVING HOSP WITH .
== END 2019-03-03 10:29 | disposition home or self-care (01) ==
LOC: OBSVTIME → D.CATH 11:01 → D.CLR 15:52 → D.CATH 16:18 → D.ICU 16:19 → D.CATH 16:19 → OBSVTIME 16:19 → D.M2 21:48 → D.ICU 21:48 → D.CATH 03-03 10:29 → D.M2 03-03 10:30
PROVIDERS: ATTEND Internal Medicine Interventional Cardiology
DX: I25.110 Atherosclerotic heart disease of native coronary artery with unstable angina pectoris (principal)

== ENCOUNTER → 2019-07-02 10:58 | Outpatient (CLI) | payer OTHER ==
[2019-03-02 16:33] VITALS: BMI 21.8
[~2019-07-02 10:58] MED LIST changes: +NITROSTAT0.4 MG SL; +RANEXA500 MG PO
--- NOTE | 2019-07-07 14:28 | EC ---
PATIENT:MARK VÁSQUEZ DATE OF SERVICE: 07/02/19 SEX: F MEDICAL RECORD: [id number] DATE OF : 65 [facility] AGE OF PATIENT: 54 ADMISSION DATE: 07/02/19 REFERRING PHYSICIAN: INTERPRETING PHYSICIAN: STEVE LÓPEZ MD ECHOCARDIOGRAM REPORT ECHO CHARGES 4 ECHO COMPLETE Date: 07/02/19 CLINICAL DIAGNOSIS: CAD/CHEST PAIN, DYSPNEA, HX CABG... ASSESS LV FUNCTION ECHOCARDIOGRAPHIC MEASUREMENTS (adult normal given) AC root (d.<3.7cm) 3.2 cm LV Septum d (<1.2 cm> 1.2 cm Valve Excursion 1.4 cm LV Septum (systole) 1.4 cm Left Atria (s.<4.0cm> 2.8 cm LVPW d(<1.2cm) 1.3 cm RV (d.<2.3cm) 2.8 cm LVPW (sytole) 1.5 cm LV diastole(<5.6CM) 4.0 cm MV E-F(>70mm/sec) cm LV systole 2.2 cm LVOT Diameter 1.5 cm MV exc.(>10mm) 1.1 cm Est.ejection fraction (50-75%) % DOPPLER: LVIT cm/sec A 76.0 cm/sec E 103 cm/sec LA cm/sec RVSP 18 mmHg LVOT 86 cm/sec AOP1/2T 519 m/s Asc. Ao 128 cm/sec RVOT 65 cm/sec RA cm/sec PA 90 cm/sec AV Gradient Peak 6.59 mmHg AV Mean 3.73 mmHg AV Area 1.4 cm MV Gradient Peak 3.96 mmHg MV Mean 1.87 mmHg MV Area cm COMMENTS: Motor Block Mechanic: 2 SAIMA SOUSA Finger Waver: 3 Dr. Anne TAPE# PACS Pericardial Effusion N DATE OF SERVICE: 07/02/2019 Adequate 2-D echo, color-flow and spectral Doppler, and M-mode. Borderline LVH. LV internal dimensions are normal. Wall motion is normal. EF is greater than or equal to 55%. Aortic valve is tricuspid. No evidence of stenosis by Doppler interrogation. Left atrium is normal. Mitral valve shows no prolapse. Trace MR. Right-sided chambers are grossly normal. Trace TR. TRANSINT:[id number] Voice Confirmation ID: [id number] DOCUMENT ID: [id number] ECHOCARDIOGRAM REPORT [id number] MARK VÁSQUEZ GREGORY A MD at 1428 CC: [id number] DICTATION DATE: 07/02/19 1455 STORE CONSULTANT: 07/02/19 1645 DEP CLI 07/02/19 [place] [id number] [place] [id number]
== END | disposition home or self-care (01) ==
LOC: D.HCCARDIO 10:58
PROVIDERS: ATTEND Internal Medicine Interventional Cardiology
DX: I25.119 Atherosclerotic heart disease of native coronary artery with unspecified angina pectoris (principal)

== ENCOUNTER 2019-07-09 10:53 | Outpatient (CLI) | payer OTHER ==
[~2019-07-09] VITALS: Ht 177.8 cm; Wt 62.7 kg
--- NOTE | ~2019-07-09 | HEMODYNAMI ---
PATIENT:MARK VÁSQUEZ MEDICAL RECORD: [id number] : 65 LOCATION:[facility] ADMISSION DATE: 07/09/19 Generatedon:07/09/201914:08 Patient name: MARK VÁSQUEZ Patient #: [id number] SSN: [id number] : 1965 Date of study: 07/09/2019 Page: Of Hemodynamic Procedure Report Patient Data Patient Demographics Procedure consent was obtained First Name: MARK Gender: Female Last Name: FAHAD : 1965 Middle Initial: Toshia Age: 54 year(s) Patient #: [id number] Race: SSN: [id number] Additional ID: [id number] Contact details Address: [address] [place] [address] [place] State: [place] City: [place] Zip code: [address] Past Medical History History of disease Date Diagnosis Comments Hypertension Diabetes Allergies Allergen Reaction Date Comments Reported Codeine 05/30/2015 Codeine 03/02/2019 Codeine 07/09/2019 Admission Admission Data Admission Date: 07/09/2019 Admission Time: 10:53 Height (in.): 70 BSA: 1.79 (m2) Height (cm.): 177.8 BMI: 19.93 (kg/m2) Weight (lbs.): 138.89 Weight (kg.): 63 Lab Results Lab Result Date: 07/09/2019 Lab Result Time: 0:00 Biochemistry Name Units Result Min Max BUN mg/dl 27 --(----)-* 7 18 Creatinine mg/dl 1.4 --(----)*- 0.6 1.3 eGFR ml/min 41 *-(----)-- 90 120 NONAFRICAN CBC Name Units Result Min Max Hematocrit % 35.9 *-(----)-- 42 54 Hemoglobin g/dl 12.6 -*(----)-- 13.5 17.5 Procedure Procedure Types Cath Procedure Diagnostic Procedure LHC LHC w/Coronaries w/Grafts Sedation Charges Moderate Sedation up to 45 minutes PCI Procedure Coronary Stent Coronary Stent Initial PTCA PTCA Additional Procedure Description Procedure Date Procedure Date: 07/09/2019 Procedure Start Time: 12:59 Procedure End Time: 14:05 Procedure Staff Name Function Canelo Rob MD Performing Physician Monica Lloyd RT Scrub Raven Pelayo RN Nurse Suzanne Reagan RT Director Institution Lee Davenport RT Monitor Indication CAD Procedure Data Cath Procedure Fluoroscopy Diagnostic fluoroscopy Total fluoroscopy Time: time: 25.7 min 25.7 min Diagnostic fluoroscopy Total fluoroscopy dose: dose: 1149 mGy 1149 mGy Contrast Material Contrast Material Type Amount (ml) Isovue 300 281 Entry Location Entry Primary Successful Side Size Upsize Upsize Entry Closure Succes sful Closure Location (Fr) 1 (Fr) 2 (Fr) Remarks Device Remarks Femoral Right 5 Fr 6 Fr Exoseal artery Short Estimated blood loss: 10 ml Diagnostic catheters Device Type Used For End Catheter Placement MULTIPACK JL 4.0 5Fr Procedure catheter MULTIPACK 3DRC 5Fr Procedure catheter MULTIPACK Pigtail 5 Fr Procedure catheter Procedure Complications No complications Procedure Medications Medication Administration Route Dosage Oxygen etCO2 Nasal cannula 2 l/min Lidocaine 2% added to field 20 Heparin Flush Bag added to field 2 bags (1000units/500ml NS) 0.9% NaCl I.V. 100 ml/hr Zofran I.V. 4 mg Versed I.V. 1 mg Fentanyl I.V. 50 mcg Versed I.V. 1 mg Fentanyl I.V. 50 mcg Heparin Bolus I.V. 4000 units Lopressor I.V. 5 mg Versed I.V. 1 mg Versed I.V. 1 mg Heparin Bolus I.V. 2000 units Hemodynamics Rest BSA: 1.79 (m2) HGB: 12.6 (g/dl) O2 Consumption: Estimated: 185.33 (ml/min) O2 Co nsumption indexed: Estimated:103.54 (ml/min/m) Heart Rate: 88 (bpm) Pressure Samples Time Site Value (mmHg) Purpose Heart Use Rate(bpm) 13:06 LV 151/-2,3 Snapshot 89 Gradients Valve Time Site Site Mean SEP/DFP Peak To Heart Use 1 2 (mmHg) (sec/min) Peak Rate (mmHg) (bpm) Aortic 13:07 LV AO 89 Snapshots Pre Cath Intra NCS Post Cath Vital Signs Time Heart Resp SPO2 etCO2 NIBP (mmHg) Rhythm Pain Sedation Rate (ipm) (%) (mmHg) Status Level (bpm) 12:51:04 85 21 100 0 Measuring NSR 0 (11) 10(A) , No pain 12:51:08 84 21 100 0 197/109(158) NSR 0 (11) 10(A) , No pain 12:55:34 77 14 100 47.3 181/87(136) NSR 0 (11) 10(A) , No pain 12:59:52 80 15 100 28.5 153/80(118) NSR 0 (11) 9(A) , No pain 13:04:08 88 16 100 35.3 162/84(119) NSR 0 (11) 9(A) , No pain 13:08:27 90 17 100 51 159/78(123) NSR 0 (11) 9(A) , No pain 13:12:49 86 25 100 48.1 152/78(117) NSR 0 (11) 9(A) , No pain 13:17:07 69 16 100 49.5 136/71(113) NSR 0 (11) 9(A) , No pain 13:21:21 67 14 100 46.6 139/72(113) NSR 0 (11) 9(A) , No pain 13:25:37 64 10 100 48.1 138/70(121) NSR 0 (11) 9(A) , No pain 13:29:51 68 28 100 42.1 148/78(117) NSR 0 (11) 9(A) , No pain 13:34:09 67 17 100 45.8 157/77(126) NSR 0 (11) 9(A) , No pain 13:38:33 69 14 100 42.8 164/71(137) NSR 0 (11) 9(A) , No pain 13:42:57 67 11 100 43.6 170/77(130) NSR 0 (11) 9(A) , No pain 13:47:15 69 15 100 42.8 163/78(126) NSR 0 (11) 10(A) , No pain 13:51:40 66 14 100 42 147/74(126) NSR 0 (11) 10(A) , No pain 13:55:58 65 16 100 42.8 155/73(123) NSR 0 (11) 10(A) , No pain 14:00:18 65 15 100 42.8 149/77(128) NSR 0 (11) 10(A) , No pain 14:04:36 64 14 100 37.5 131/70(108) NSR 0 (11) 10(A) , No pain Medications Time Medication Route Dose Verified Delivered Reason Notes Effectiveness by by 12:49:27 Oxygen etCO2 2 Buffie Buffie used for Nasal l/min Gita Pelayo RN procedure cannula 12:49:37 Lidocaine 2% added 20ml Buffie Canelo for local to vial Gita Rob anesthetic field PRASAD 12:49:44 Heparin Flush added 2 Buffie Canelo used for Bag to bags Gita Rob procedure (1000units/500ml field PRASAD NS) 12:49:53 0.9% NaCl I.V. 100 Buffie Buffie Per physician ml/hr Gita RN Gita RN 12:50:50 Zofran I.V. 4 mg Buffie Buffie for nausea Gita RN Gita RN 12:54:57 Versed I.V. 1 mg Buffie Buffie for sedation Gita RN Gita RN 12:55:03 Fentanyl I.V. 50 Buffie Buffie for sedation mcg Gita RN Gita RN 12:59:21 Versed I.V. 1 mg Buffie Buffie for sedation Pelayo RN Gita RN 12:59:25 Fentanyl I.V. 50 Buffie Buffie for sedation mcg Pelayo RN Gita RN 13:11:18 Heparin Bolus I.V. 4000 Buffie Buffie for verif ied units Gita RN Gita RN anticoagulation with dr cain 13:13:40 Lopressor I.V. 5 mg Buffie Buffie Per physician Gita Pelayo RN 13:27:24 Versed I.V. 1 mg Buffie Buffie for sedation Gita RN Gita RN 13:33:14 Versed I.V. 1 mg Buffie Buffie for sedation Gita RN Gita RN 13:42:44 Heparin Bolus I.V. 2000 Buffie Buffie for verif ied units Gita RN Gita RN anticoagulation with dr cain Procedure Log Time Note 12:26:43 Informed consent obtained and on chart 12:30:43 Lee SANTOS(R) sent for patient. Start room use. 12:31:29 Patient Weight : 138.89 lbs 12:31:33 Patient Height : 70 inches 12:32:10 Lab Result : Creatinine 1.4 mg/dl 12:32:10 Lab Result : BUN 27 mg/dl 12:32:10 Lab Result : Hemoglobin 12.6 g/dl 12:32:10 Lab Result : eGFR NONAFRICAN 41 ml/min 12:32:10 Lab Result : Hematocrit 35.9 % 12:32:17 Diagnostic Cath Status : Elective 12:32:18 PCI Cath Status : Elective 12:32:41 Indication : CAD 12:32:58 Patient allergic to Codeine 12:37:54 Procedure Status Elective Heart Cath (OP). 12:37:56 Time tracking: Regular hours (M-F 7:00 - 5:00) 12:38:01 Plan of Care:Hemodynamics will remain stable., Cardiac rhythm will remain stable., Comfort level will be maintained., Respiratory function will remain adequate., Patient/ family verbilizes understanding of procedure., Procedure tolerated without complication., Recovers from procedure without complications.. 12:41:37 Patient received from Pre/Post Procedure Room to CCL 1 Unconscious. Tansferred to table in Supine position. 12:41:38 Warm blankets applied, and freddy hugger turned on for patient comfort. 12:41:39 Correct patient and procedure confirmed by team. 12:41:39 ECG and BP/O2 sat monitors applied to patient. 12:41:52 H&P Date Dictated: 06/29/2019 Within 30 days and on chart., H&P Addendum completed by physician on day of procedure. (MUST COMPLETE FOR ALL OUTPATIENTS). 12:49:16 Vital chart was started 12:49:27 Oxygen 2 l/min etCO2 Nasal cannula was administered by Raven Pelayo RN; used for procedure; 12:49:37 Lidocaine 2% 20ml vial added to field was administered by Canelo Rob MD; for local anesthetic; 12:49:44 Heparin Flush Bag (1000units/500ml NS) 2 bags added to field was administered by Canelo Rob MD; used for procedure; 12:49:48 Baseline sample Acquired. 12:49:53 0.9% NaCl 100 ml/hr I.V. was administered by Raven Pelayo RN; Per physician; 12:49:54 Rhythm: sinus rhythm 12:49:55 Full Disclosure recording started 12:49:55 Pre-procedure instructions explained to patient. 12:49:56 Pre-op teaching completed and patient verbalized understanding. 12:49:58 Family in patients room. 12:49:59 Patient NPO since Midnight. 12:50:01 Is patient on blood thinner?Yes 12:50:03 ACC The patient was administered the following blood thiners within the last 24 hours: ACCPlavix 12:50:05 Patient diabetic? Yes. 12:50:08 If diabetic: On Metformin? No 12:50:12 Patient not . Patient has had tubal. 12:50:21 Previous problem with sedation/anesthesia? Yes NAUSEA 12:50:26 Snore? Yes 12:50:27 Sleep apnea? No 12:50:28 Deviated septum? No 12:50:29 Opens mouth fully? Yes 12:50:29 Sticks out tongue? Yes 12:50:31 Airway obstruction? No ? 12:50:36 Dentures? No ? 12:50:38 Pre procedure: right dorsailis pedis pulse 2+ Normal; easily identifiable; not easily obliterated 12:50:41 Patient pain scale 0/10 ?. 12:50:46 IV patent on arrival in right antecubital with 0.9% NaCl at [facility]. 12:50:49 Lab results completed and on chart. 12:50:50 Zofran 4 mg I.V. was administered by Raven Pelayo RN; for nausea; 12:50:55 Right groin area was prepped with chlora-prep and draped in sterile fashion 12:50:56 Alarms reviewed by R. N. 12:50:57 Sharps counted by scrub and verified by R.N. 12:51:00 Use device set Femoral Dx 12:51:01 ACIST Syringe (66514) opened to sterile field. 12:51:01 Bag Decanter (2002S) opened to sterile field. 12:51:02 ACIST Hand Control (10523) opened to sterile field. 12:51:03 ACIST Manifold (03753) opened to sterile field. 12:51:04 Tegaderm 4 x 4 (1626W) opened to sterile field. 12:51:06 Medline Cath Pack ([id number]) opened to sterile field. 12:51:07 DIAGNOSTIC Multipack 5Fr catheter set (QX1474) opened to sterile field. 12:51:08 SHEATH 5FR [place] (YQO293) opened to sterile field. 12:51:08 EMERALD Guide Wire (961-108) opened to sterile field. 12:53:32 Physician arrived 12:53:32 --------ALL STOP TIME OUT------ 12:53:33 Final Timeout: patient, procedure, and site verified with staff and physician. All members of the team are in agreement. 12:53:34 Right groin site verified by team. 12:53:37 Fire Safety Assessment: A--An alcohol-based skin anteseptic being used preoperatively., C--Open oxygen or nitrous oxide is being used., D--An ESU, laser, or fiber-optic light is being used. 12:53:40 Physical assessment completed. ASA score P 2 - A patient with mild systemic disease as per Canelo Rob MD. 12:54:57 Versed 1 mg I.V. was administered by Raven Pelayo RN; for sedation; 12:55:03 Fentanyl 50 mcg I.V. was administered by Raven Pelayo RN; for sedation; 12:57:07 3a) 45-59 Moderately reduced kidney function. 12:57:21 Maximum allowable contrast dose (3.7 X eGFR X 0.75)113 ml. 12:57:24 Sedation plan: IV Moderate Sedation Medication:Versed, Fentanyl 12:59:19 Zero performed for pressure channel P1 12:59:21 Versed 1 mg I.V. was administered by Raven Pelayo RN; for sedation; 12:59:25 Fentanyl 50 mcg I.V. was administered by Raven Pelayo RN; for sedation; 12:59:32 ACCPatient has been prescribed/administered the following anti-anginal medication within the last 2 weeks: Beta Ramone, Long-Acting Nitrates 12:59:32 Procedure started. 12:59:34 Local anesthetic to right femoral artery with Lidocaine 2% by Canelo Rob MD.INITIAL ACCESS ONLY 12:59:43 A 5 Fr sheath was inserted into the Right Femoral artery 12:59:54 ACC Patient presents with Unstable Angina CCS Anginal Class 4--Inability to carry out any physical activity w/o angina. Angina may occur at rest. 12:59:56 A MULTIPACK JL 4.0 5Fr catheter was advanced over the wire and used for Procedure. 13:00:11 LCA angiography performed. 13:03:03 Catheter exchanged over wire. 13:03:16 A MULTIPACK 3DRC 5Fr catheter was advanced over the wire and used for Procedure. 13:05:09 POWELL to LAD angiography performed. 13:05:31 Catheter exchanged over wire. 13:05:37 A MULTIPACK Pigtail 5 Fr catheter was advanced over the wire and used for Procedure. 13:06:42 WHISPER 300cm guide wire ([id number]) opened to sterile field. 13:06:43 INFLATOR Merit BasixCompak (HG2574) opened to sterile field. 13:06:43 SHEATH 6FR [place] (DDT260) opened to sterile field. 13:06:50 ACCDominant side:Co-Dominant 13:06:51 LV gram done using TEIXEIRA 13:06:53 Injector settings: Ml/sec: 10, Volume: 20, 13:06:54 LV hemodynamics recorded. 13:06:58 EF : 55 % 13:07:40 Catheter removed. 13:09:27 GUIDE 6FR JL 4.0 catheter (BP0XQ55) opened to sterile field. 13:11:18 Heparin Bolus 4000 units I.V. was administered by Raven Pelayo RN; for anticoagulation; verified with dr cain 13:13:40 Lopressor 5 mg I.V. was administered by Raven Pelayo RN; Per physician; 13:14:40 Sheath upsized to a 6 Fr Short. 13:14:47 6 Fr JL 4 guide catheter was inserted over the wire 13:14:52 WHISPER wire advanced. 13:14:53 Wire advanced across lesion. 13:16:32 The NC EUPHORA 3.0 x 15 balloon ([id number]) was advanced and then removed because of failure to cross lesion 13:19:03 WHISPER 300cm guide wire ([id number]) opened to sterile field. 13:19:11 WHISPER wire advanced BENNETT WIRE. 13:26:35 Wire removed. 13:27:24 Versed 1 mg I.V. was administered by Raven Pelayo RN; for sedation; 13:28:35 Wire removed. 13:29:05 CHOICE PT Floppy Straight 300cm guide wire ([id number]) opened to sterile field. 13:29:13 CHOCIE PT ES wire advanced. 13:29:15 Wire advanced across lesion. 13:30:53 Inflate balloon Inflation number: 1 A EMERGE OTW 2.5 x 15 balloon ([id number]) was prepped and advanced across the Dist CX , then inflated to 12 JJ for 0:45 (min:sec) . 13:31:15 Inflation number: 2 The EMERGE OTW 2.5 x 15 balloon ([id number]) was reinflated across the Dist CX , to 12 JJ for 0:45 (min:sec) . 13:31:41 Inflation number: 1 The EMERGE OTW 2.5 x 15 balloon ([id number]) was reinflated across the Mid CX , to 12 JJ for 0:45 (min:sec) . 13:32:12 Inflation number: 2 The EMERGE OTW 2.5 x 15 balloon ([id number]) was reinflated across the Mid CX , to 12 JJ for 0:45 (min:sec) . 13:33:14 Versed 1 mg I.V. was administered by Raven Pelayo RN; for sedation; 13:35:46 Inflation number: 1 The EMERGE OTW 2.5 x 15 balloon ([id number]) was reinflated across the Prox CX , to 12 JJ for 0:45 (min:sec) . 13:36:19 Inflation number: 2 The EMERGE OTW 2.5 x 15 balloon ([id number]) was reinflated across the Prox CX , to 12 JJ for 0:45 (min:sec) . 13:39:28 Balloon removed over the wire. 13:42:44 Heparin Bolus 2000 units I.V. was administered by Raven Pelayo RN; for anticoagulation; verified with dr cain 13:47:34 Place stent Inflation Number: 3 A COBRA RX 3.0 X 12 Stent was prepped and advanced across the Prox CX . The stent was deployed at 14 JJ for 0:30 (min:sec) . 13:47:40 Stent catheter was removed intact over wire. 13:47:41 Wire removed. 13:47:48 WHISPER wire advanced. 13:48:33 Wire advanced across lesion. 13:50:15 The EMERGE OTW 2.5 x 15 balloon ([id number]) was advanced and then removed because of failure to cross lesion 13:53:05 Inflate balloon Inflation number: 1 A EMERGE OTW 1.5 x 8 balloon ([id number]) was prepped and advanced across the 1st Ob Fidelia , then inflated to 8 JJ for 0:45 (min:sec) . 13:54:20 Inflation number: 2 The EMERGE OTW 1.5 x 8 balloon ([id number]) was reinflated across the 1st Ob Fidelia , to 10 JJ for 0:45 (min:sec) . 13:54:22 Balloon removed over the wire. 13:55:14 ACT drawn and resulted at 391 seconds. (normal therapeutic range 180-240 seconds). 13:57:26 Inflate balloon Inflation number: 3 A EMERGE OTW 2.0 x 8 balloon ([id number]) was prepped and advanced across the 1st Ob Fidelia , then inflated to 10 JJ for 0:45 (min:sec) . 13:57:55 Balloon removed over the wire. 13:57:55 Wire removed. 13:57:56 Guide catheter removed. 13:58:09 Pre PCI Site: [facility] has 80% stenosis. 13:58:37 Post PCI Site: [facility] has 0% stenosis. 13:59:12 ACC Pre-intervention DOLLY Flow is 3. 13:59:16 ACC Post-intervention DOLLY Flow is 3. 13:59:23 Pre PCI Site: [facility] OM1 has 90% stenosis. 13:59:38 Post PCI Site: [facility] OM1 has 50% stenosis. 13:59:57 EXOSEAL 6Fr (EX600) opened to sterile field. 14:00:14 Sheath removed intact; hemostasis achieved with Exoseal to the Right Femoral artery. 14:00:16 Procedure ended.(Physican Out) 14:00:59 Fluoroscopy time 25.70 minutes. 14:01:05 Fluoroscopy dose: 1149 mGy 14:01:05 Flurop Dose total: 1149 14:01:29 Dose Area Product 56331 mGy/cm. 14:02:05 Contrast amount:Isovue 300 281ml. 14:02:07 Maximum allowable dose exceeded? Yes. 14:02:12 Sharps counted by scrub and verified by R.N. 14:02:13 Insertion/operative site no bleeding no hematoma. 14:02:15 Post-op/insertion site Right Femoral artery dressed using a 4 x 4 and Tegaderm. 14:02:38 Post right femoral artery:stable, soft, clean and dry 14:02:40 Post Procedure Pulses reassessed and unchanged 14:03:40 Post-procedure physical assessment completed. ASA score P 2 - A patient with mild systemic disease as per Canelo Rob MD. 14:03:43 Post procedure rhythm: unchanged. 14:03:51 Estimated blood loss: 10 ml 14:03:52 Post procedure instruction explained to patient.Patient verbalizes understanding. 14:03:53 Patient needs reinforcement of post procedure teaching. 14:04:14 Procedure type changed to Cath procedure, Diagnostic procedure, LHC, LHC w/Coronaries w/Grafts, Sedation Charges, Moderate Sedation up to 45 minutes, PCI procedure, Coronary Stent, Coronary Stent Initial, PTCA, PTCA Additional 14:05:22 Procedure and supply charges have been captured, reviewed, submitted and are correct. 14:05:24 Procedure Complication : No complications 14:05:26 Vital chart was stopped 14:05:27 See physician's report for complete and final results. 14:05:28 Report given to Pre/Post Procedure Room. 14:05:30 Patient transfered to Pre/Post Procedure Room with Stretcher. 14:05:32 Procedure ended. 14:05:32 Full Disclosure recording stopped 14:05:40 ACC-PCI Only Patient was given prescriptions, or instructed by Canelo Rob MD to start/continue the following medications upon discharge: Aspirin, Plavix 14:05:42 End room use (Document Last) Intervention Summary Intervention Notes Time ActionType Lesion and Equipment Action# Pressure Duration Attributes Used 13:16:32 Discard NC EUPHORA Balloon 3.0 x 15 balloon ([id number]) 13:30:53 Inflate Dist CX EMERGE OTW 1 12 00:45 balloon 2.5 x 15 balloon ([id number]) 13:31:15 Reinflate Dist CX EMERGE OTW 2 12 00:45 balloon 2.5 x 15 balloon ([id number]) 13:31:41 Reinflate Mid CX EMERGE OTW 1 12 00:45 balloon 2.5 x 15 balloon ([id number]) 13:32:12 Reinflate Mid CX EMERGE OTW 2 12 00:45 balloon 2.5 x 15 balloon ([id number]) 13:35:46 Reinflate Prox CX EMERGE OTW 1 12 00:45 balloon 2.5 x 15 balloon ([id number]) 13:36:19 Reinflate Prox CX EMERGE OTW 2 12 00:45 balloon 2.5 x 15 balloon ([id number]) 13:47:34 Place stent Prox CX COBRA RX 3.0 3 14 00:30 X 12 Stent 13:50:15 Discard EMERGE OTW Balloon 2.5 x 15 balloon ([id number]) 13:53:05 Inflate 1st Ob Fidelia EMERGE OTW 1 8 00:45 balloon 1.5 x 8 balloon ([id number]) 13:54:20 Reinflate 1st Ob Fidelia EMERGE OTW 2 10 00:45 balloon 1.5 x 8 balloon ([id number]) 13:57:26 Inflate 1st Ob Fidelia EMERGE OTW 3 10 00:45 balloon 2.0 x 8 balloon ([id number]) Device Usage Item Name Manufacture Quantity Catalog Number Hospital Part Current Minimal Lot# / Charge Number Stock Stock Serial# Code ACIST Syringe Acist 1 80104 338338 707547 239493 20 (46640) Medical Systems Inc Bag Decanter Microtek 1 2001S 857011 37058 640256 5 (2001S) Medical Inc. ACIST Hand Acist 1 17736 012887 807437 214545 5 Control Medical (07706) Systems Inc ACIST Manifold Acist 1 05310 951380 673135 333921 5 (41177) Medical Systems Inc Tegaderm 4 x 4 3M 1 1626W 593342 744856 390042 5 (1626W) Medline Cath Medline 1 [id number] 178572 64468 635198 5 Pack ([id number]) DIAGNOSTIC Cardinal 1 AN1860 716185 06268 588229 30 Multipack 5Fr Health catheter set (NI6678) SHEATH 5FR Terumo 1 OLO892 697433 458122 067518 5 [place] (PWH396) EMERALD Guide Cardinal 1 502-455 833611 611339 612865 5 Wire (524-992) Health MULTIPACK JL Cardinal 1 922025 5 4.0 5Fr Health catheter MULTIPACK 3DRC Cardinal 1 183147 5 5Fr catheter Health MULTIPACK Cardinal 1 142573 5 Pigtail 5 Fr Health catheter WHISPER 300cm Matute 2 [id number] 259375 552552 618300 5 guide wire Vascular ([id number]) INFLATOR Merit Merit 1 WS2767 714589 121601 793086 15 [facility] (PA3987) SHEATH 6FR Terumo 1 UIA798 462588 263038 268261 40 [place] (UTC171) GUIDE 6FR JL Medtronic 1 PX5BO64 918522 10759 184731 1 4.0 catheter (HD0CL28) NC EUPHORA 3.0 Medtronic 1 [id number] 019620 272795 610598 1 [id number] x 15 balloon ([id number]) CHOICE PT [place] 1 [id number] 957165 512489 770336 5 Floppy Scientific Straight 300cm guide wire ([id number]) EMERGE OTW 2.5 [place] 1 [id number] 239720 675723 617009 5 [id number] x 15 balloon Scientific ([id number]) COBRA RX 3.0 X Celonova 1 446-11-19287 420982 91287787 7719027 6 [id number] 12 stent Biosciences ([id number]) EMERGE OTW 1.5 [place] 1 [id number] 206894 932294 461683 5 97351283 x 8 balloon Scientific ([id number]) EMERGE OTW 2.0 [place] 1 [id number] 819176 824264 691143 5 92292825 x 8 balloon Scientific ([id number]) EXOSEAL 6Fr Cardinal 1 EX600 491174 122337 664516 10 (EX600) Health Signature Audit [place] Stage Time Signature Unsigned Intra-Procedure 07/09/2019 Lee Davenport RT(R) 2:08:05 PM Signatures Performing Physician : Canelo Signature : [facility] [place] PRASAD Date : Time : Nurse : Raven Pelayo RN Signature : Date : Time : Monitor : Lee Davenport RT Signature : Date : Time : [address] [place] [address]
[~2019-07-09 10:53] MED LIST changes: -NITROSTAT0.4 MG SL; -RANEXA500 MG PO
[2019-07-09] MEDS ORDERED: NITROSTAT0.4 MG SL (11:12)
[2019-07-09 11:25] VITALS: BP 158/74; Ht 177.8 cm; Wt 62.7 kg
[2019-07-09 11:54] LABS: BASOPHILS 0.3 % (0-2); EOSINOPHILS 2.6 % (0-7); HEMATOCRIT 35.9 % (36.0-48.0); HEMOGLOBIN 12.6 g/dL (12-16); LYMPHOCYTES 34.6 % (15-50); MCH 28.3 pg (26.0-34.0); MCHC 35.1 g/dL (31.0-37.0); MCV 80.5 fL (80.0-100.0); MEAN PLATELET VOLUME 10.6 fL (7.4-10.4); MONOCYTES 6.7 % (2-11); NEUTROPHILS 55.8 % (40-80); PLATELET COUNT 155 10x3/uL (130-400); RBC 4.46 10x6/uL (4.00-5.40); RDW 13.1 % (11.5-14.5); WBC 3.4 10x3/uL (4.8-10.8)
[2019-07-09 12:01] LABS: ANION GAP 11.1 mmol/L (8-16); CALCIUM 10.1 mg/dL (8.5-10.1); CARBON DIOXIDE 30.5 mmol/L (21.0-32.0); CHOL - HDL RATIO 2.6 ratio (2.3-4.1); CREATININE - SERUM 1.4 mg/dL (0.6-1.3); LDL-HDL RATIO 1.4 ratio (1.5-3.5); POTASSIUM - SERUM 4.6 mmol/L (3.5-5.1)
--- NOTE | 2019-07-09 14:15 | NUR ---
PT RECEIVED VIA STRETCHER FROM TECHNICAL ANALYST POST PROCEDURE FOR RECOVERY. PT SLEEPING, BUT VERBALLY AROUSABLE. PT DENIES PAIN OR DISCOMFORT. IV PATENT INFUSING VIA ORDERS PER R ARM. HR SINUS PERNELL W ST ELEVATION, RATE 58. BP 147/59, O2 SAT 100 ON 2L/NC. R GROIN W 6FR EXOCELE, DRESSING CDI NO BLEEDING OR HEMATOMA NOTED. LEG PINK AND WARM, PEDAL PULSES PALPABLE. AT BEDSIDE, CALL LIGHT IN REACH
[2019-07-09] MEDS ORDERED: RANEXA500 MG PO (14:22)
--- NOTE | 2019-07-09 14:45 | NUR ---
PT RESTING QUIETLY, DENIES PAIN OR DISCOMFORT. R GROIN SOFT, DRESSING CDI NO BLEEDING OR HEMATOMA NOTED. PEDAL PULSES PALPABLE. TAKING SIPS OF WATER, DENIES NAUSEA. VSS. AT BEDSIDE, CALL LIGHT IN REACH
--- NOTE | 2019-07-09 15:33 | NUR ---
PT RESTING QUIETLY, DENIES PAIN OR DISCOMFORT. HR 60, BP 113/53, O2 SAT 100, RR 11. R GROIN DRESSING CDI NO BLEEDING OR HEMATOMA NOTED. LEG PINK AND WARM, PEDAL PULSES PALPABLE. REMAINS AT BEDSIDE, CALL LIGHT IN REACH
--- NOTE | 2019-07-09 16:00 | NUR ---
PT DOING WELL, DENIES PAIN OR DISCOMFORT. PT PLACED ON BEDPAN, VOIDED APROX 300 CC CLEAR YELLOW URINE. HR 63, BP 134/61, RR 12. R GROIN REMAINS SOFT, DRESSING CDI NO BLEEDING OR HEMATOMA NOTED. LEG PINK AND WARM, PEDAL PULSES PALAPBLE CALL LIGHT IN REACH, AT BEDSIDE.
--- NOTE | 2019-07-09 16:37 | NUR ---
PT RESTING W/O COMPLAINTS. R GROIN REMAINS SOFT, DRESSING CDI NO BLEEDING OR HEMATOMA NOTED. LEG PINK AND WARM PEDAL PULSES PALPABLE. VSS. CALL LIGHT IN REACH
--- NOTE | 2019-07-09 17:04 | NUR ---
R GROIN DRESSING REMAINS CDI, NO BLEEDING OR SWELLING NOTED. HOB ELEVATED SLIGHTLY. APPLESAUCE AND DT SPRITE GIVEN. PT W/O COMPLAINTS OR OTHER NEEDS AT THIS TIME. HR 71, BP 142/55, RR 12. CALL LIGHT IN REACH
--- NOTE | 2019-07-09 17:30 | NUR ---
PT RESTING COMFORTABLY, GROIN SOFT, DRESSING REMAINS CDI NO BLEEDING OR SWELLING NOTED. LEG PINK AND WARM, PEDAL PULSES PALPABLE. REMAINS AT BEDSIDE, CALL LIGHT IN REACH
--- NOTE | 2019-07-09 17:50 | NUR ---
DISCHARGE INSTRUCTIONS REVIEWED W PT AND , BOTH VERBALIZED UNDERSTANDING. IV REMOVED W CATH INTACT, MONITORS REMOVED. NO CHANGE IN GROIN, STILL NO BLEEDING OR SWELLING. PT UP TO DRESS FOR DISCHARGE. 1755 PT AMBULATED TO BR, VOIDING W/O DIFFICULITY
--- NOTE | 2019-07-09 18:09 | NUR ---
PT DISCHARGED VIA WC TO PRIVATE VEHICLE TO WAITING. PT HAD ALL BELONGINGS AND DISCHARGE INSTRUCTIONS.
--- NOTE | 2019-07-13 08:39 | OP ---
PATIENT NAME: MARK VÁSQUEZ MEDICAL RECORD: [id number] :65 LOCATION:D.CAT ADMISSION DATE: SURGEON: STEVE LÓPEZ MD DATE OF OPERATION: 07/09/2019 PROCEDURE: Left heart catheterization, selective coronary angiography, right femoral artery approach. CATHETERS: A 5-Russian sheath, 5/4 left and right Mayra, 5/4 pig. The procedure was well tolerated. We proceeded immediately to do a PTCA stenting, circ . FINDINGS: Left ventriculography in 30-degree TEIXEIRA view: Normal wall motion and normal systolic function. CORONARY ANATOMY: LEFT MAIN: Left main is free of disease. LAD: Fills for a short period of course and then is seen filling competitive flow. CIRCUMFLEX: Circumflex itself has severe diffuse in-stent restenosis and the OM has mild restenosis. Right coronary very distally has severe diffuse diabetic disease. PLAN: Admission to [facility] with 5-Russian sheath exchanged for 6-Russian sheath. A JL4 guiding catheter provided guiding catheter support followed by 300 cm Whisper wire which was placed down the diffusely diseased circumflex down this portion of vessel. We used a 2.5 x 15 mm balloon up and down the vessel. This showed improvement in flow in restenosis. However, there is an area proximally to the proximal stent that showed some dissection. Therefore, I placed a 3.0 x 12 mm Cobra stent up to 14 atmospheres. This showed snowplowing to the OM itself. We placed a Whisper wire across the snowplowed OM and then inflated this with a 2.0 balloon at the ostium for 20% residual. IMPRESSION: Severe diffuse disease, restenosis treated with balloon angioplasty, and subsequent one stent, some diffuse disease, it might be amenable to intervention; however, we will continue with the medical therapy with this, hopefully this will help with angina control. TRANSINT:[id number] Voice Confirmation ID: [id number] DOCUMENT ID: [id number] STEVE LÓPEZ MD at 0839 CC: [id number] DICTATION DATE: 07/09/19 1408 ELECTRIFIER OPERATOR: 07/09/192041 DEP CLI 07/09/19 [address] [place] [address]
== END 2019-07-09 16:00 | disposition home or self-care (01) ==
LOC: D.CATH 10:53
PROVIDERS: ATTEND Internal Medicine Interventional Cardiology
DX: I25.119 Atherosclerotic heart disease of native coronary artery with unspecified angina pectoris (principal); T82.855A Stenosis of coronary artery stent, initial encounter; Z01.812 Encounter for preprocedural laboratory examination

== ENCOUNTER → 2019-08-25 17:09 | Outpatient (CLI) | payer OTHER ==
[2019-07-09 11:25] VITALS: BMI 19.8
[~2019-08-25 17:09] MED LIST changes: +NITROSTAT0.4 MG SL; +RANEXA500 MG PO
[2019-08-25 18:45] LABS: CHOL - HDL RATIO 1.9 ratio (2.3-4.1); LDL-HDL RATIO 0.7 ratio (1.5-3.5)
== END | disposition home or self-care (01) ==
LOC: D.LABREF 17:09
PROVIDERS: ATTEND Internal Medicine Interventional Cardiology
DX: I25.10 Atherosclerotic heart disease of native coronary artery without angina pectoris (principal); I10 Essential (primary) hypertension

== ENCOUNTER 2020-05-09 08:52 | Outpatient (CLI) | payer OTHER ==
[~2020-05-09] VITALS: Ht 177.8 cm; Wt 64.3 kg
--- NOTE | ~2020-05-09 | OP ---
PATIENT NAME: MARK VÁSQUEZ MEDICAL RECORD: [id number] :65 LOCATION:D.CAT ADMISSION DATE: SURGEON: STEVE LÓPEZ MD DATE OF OPERATION: 05/09/2020 PROCEDURE: Left heart catheterization, selective coronary angiography, PTCA to the OM, and right femoral artery approach. CATHETERS: A 5-Cymro sheath, 5/4 left and right Mayra, 5/4 pig. The procedure was well tolerated. We proceeded to do a PTCA of the OM. FINDINGS: Left ventriculography in 30-degree TEIXEIRA view: Normal wall motion and normal systolic function. CORONARY ANATOMY: LEFT MAIN: Left main is free of disease. LAD: Fills for a short time and then seen filling via competitive flow to circumflex. CIRCUMFLEX: Circumflex and OM system both have diffuse in-stent restenosis. RIGHT CORONARY ARTERY: An area of previous stenting is widely patent. PLAN: Intervention to OM momentarily. We will plan on managing the circumflex medically at this point given multiple interventions. DESCRIPTION OF PROCEDURE: A 5-Cymro sheath was exchanged for a 6-Cymro sheath. A Whisper wire was placed across multiple areas of restenosis in the OM down this portion of the vessel. A 3.0 x 15 mm Ashley balloon was taken up and down this vessel with good expansion and resolution of the restenotic tissue. DOLLY flow improved from 2-3 in the OM circumflex to manage medically. Sheath closed with ExoSeal device. The patient was placed on Plavix. Heparin was used during the case. TRANSINT:[id number] Voice Confirmation ID: [id number] DOCUMENT ID: [id number] STEVE LÓPEZ MD CC: [id number] DICTATION DATE: 05/09/20 105 FINANCIAL ACCOUNTING MANAGER: 05/09/202039 DEP CLI 05/09/20 [facility] [address] [place] [address]
--- NOTE | ~2020-05-09 | HEMODYNAMI ---
PATIENT:MARK VÁSQUEZ MEDICAL RECORD: [id number] : 65 LOCATION:DIsabelCAT ADMISSION DATE: 05/09/20 Generatedon:05/09/202010:45 Patient name: MARK VÁSQUEZ Patient #: [id number] SSN: [id number] : 1965 Date of study: 05/09/2020 Page: Of Hemodynamic Procedure Report Patient Data Patient Demographics Procedure consent was obtained First Name: MARK Gender: Female Last Name: FAHAD : 1965 [facility] Initial: Toshia Age: 54 year(s) Patient #: [id number] Race: SSN: [id number] Additional ID: [id number] Contact details [address]: [address] [place] [address] [place] State: [place] City: [place] Zip code: [address] Past Medical History History of disease Date Diagnosis Comments Hypertension Diabetes Allergies Allergen Reaction Date Comments Reported Codeine 05/30/2015 Codeine 03/02/2019 Codeine 07/09/2019 Codeine 05/09/2020 Admission Admission Data Admission Date: 05/09/2020 Admission Time: 8:52 Arrival Date: 05/09/2020 Arrival Time: 0:00 Insurance Payor: State-specific plan, Private health insurance Height (in.): 62 BSA: 1.62 (m2) Height (cm.): 157.48 BMI: 24.87 (kg/m2) Weight (lbs.): 136 Weight (kg.): 61.69 Lab Results Lab Result Date: 05/09/2020 Lab Result Time: 0:00 Biochemistry Name Units Result Min Max BUN mg/dl 34 --(----)-* 7 18 Creatinine mg/dl 1.6 --(----)-* 0.6 1.3 eGFR ml/min 36 *-(----)-- 90 120 NONAFRICAN CBC Name Units Result Min Max Hemoglobin g/dl 12.9 -*(----)-- 13.5 17.5 Procedure Procedure Types Cath Procedure Diagnostic Procedure [facility] Coronaries w/Grafts Sedation Charges Moderate Sedation up to 15 minutes PCI Procedure PTCA PTCA Initial Hemochron ACT Test Procedure Description Procedure Date Procedure Date: 05/09/2020 Procedure Start Time: 10:17 Procedure End Time: 10:43 Procedure Staff Name Function Canelo Rob MD Performing Physician Maral Bautista RT Monitor Monica Lloyd RT Scrub Raven Pelayo RN Nurse Procedure Data Cath Procedure Fluoroscopy Diagnostic fluoroscopy Total fluoroscopy Time: 6.1 time: 6.1 min min Diagnostic fluoroscopy Total fluoroscopy dose: 455 dose: 455 mGy mGy Contrast Material Contrast Material Type Amount (ml) Isovue 300 102 Entry Location Entry Primary Successful Side Size Upsize Upsize Entry Closure Succes sful Closure Location (Fr) 1 (Fr) 2 (Fr) Remarks Device Remarks Femoral Right 5 Fr 6 Fr Exoseal artery Short Estimated blood loss: 10 ml Diagnostic catheters Device Type Used For End Catheter Placement MULTIPACK JL 4.0 5Fr Procedure catheter MULTIPACK 3DRC 5Fr Procedure catheter MULTIPACK Pigtail 5 Fr Ventriculography catheter Procedure Complications No complications Procedure Medications Medication Administration Route Dosage Oxygen etCO2 Nasal cannula 2 l/min Lidocaine 2% added to field 20 Heparin Flush Bag added to field 2 bags (1000units/500ml NS) 0.9% NaCl I.V. 100 ml/hr Plavix P.O. 75 mg Zofran I.V. 4 mg Versed I.V. 1 mg Fentanyl I.V. 50 mcg Versed I.V. 1 mg Fentanyl I.V. 50 mcg Versed I.V. 0.5 mg Fentanyl I.V. 25 mcg Heparin Bolus I.V. 4000 units Hemodynamics Rest BSA: 1.62 (m2) HGB: 12.9 (g/dl) O2 Consumption: Estimated: 153.57 (ml/min) O2 Co nsumption indexed: Estimated:94.8 (ml/min/m) Heart Rate: 65 (bpm) Pressure Samples Time Site Value (mmHg) Purpose Heart Use Rate(bpm) 10:23 LV 142/3,15 Snapshot 69 10:23 AO 142/57(92) Pullback 75 10:23 LV 142/17,24 Pullback 75 Gradients Valve Time Site 1 Site 2 Mean SEP/DFP Peak To Heart Use (mmHg) (sec/min) Peak Rate (mmHg) (bpm) Aortic 10:23 LV AO 3 5 0 75 142/17,24 142/57(92) Calculations Valve P-P Mean Valve Index Valve Source Name Gradient Area Flow (cm2) Aortic 0 3 0 3 Snapshots Pre Cath Intra NCS Post Cath Vital Signs Time Heart Resp SPO2 etCO2 NIBP (mmHg) Rhythm Pain Sedation Rate (ipm) (%) (mmHg) Status Level (bpm) 10:02:14 62 22 100 0 208/93(155) NSR 0 (11) 10(A) , No pain 10:06:48 63 11 100 36.6 209/89(143) NSR 0 (11) 10(A) , No pain 10:11:14 60 13 100 40.4 162/75(130) NSR 0 (11) 10(A) , No pain 10:15:22 71 13 90 0 107/68(84) NSR 0 (11) 10(A) , No pain 10:19:30 69 12 96 28.4 116/67(87) NSR 0 (11) 9(A) , No pain 10:24:33 66 11 100 44.1 132/58(99) NSR 0 (11) 9(A) , No pain 10:28:51 64 13 100 41.9 123/60(105) NSR 0 (11) 9(A) , No pain 10:33:08 61 12 100 24.6 106/54(88) NSR 0 (11) 9(A) , No pain 10:37:17 55 13 100 35.1 109/56(97) NSR 0 (11) 9(A) , No pain 10:42:14 67 13 100 38.9 172/87(139) NSR 0 (11) 10(A) , No pain Medications Time Medication Route Dose Verified Delivered Reason Notes Effectiveness by by 10:04:05 Oxygen etCO2 2 Canelo Carbajal used for Nasal l/min St Cuauhtemoc Pelayo RN procedure cannula 10:04:14 Lidocaine 2% added 20ml Canelo Lemos for local to vial [facility] anesthetic field MD PRASAD 10:04:21 Heparin Flush added 2 Canelo Lemos used for Bag to bags [facility] procedure (1000units/500ml field MD PRASAD NS) 10:04:32 0.9% NaCl I.V. 100 Canelo Carbajal Per physician ml/hr [facility] Cuauhtemoc Pelayo RN, MD 10:04:38 Plavix P.O. 75 mg Canelo Carbajal Per physician [facility] Cuauhtemoc Pelayo RN, MD 10:06:12 Zofran I.V. 4 mg Canelo Holleyie Per physician pt [facility] Cuauhtemoc Pelayo RN nausea with sedation medications 10:15:19 Versed I.V. 1 mg Canelo Holleyie for sedation [facility] Cuauhtemoc Pelayo RN, MD 10:15:26 Fentanyl I.V. 50 Canelo Buffie for sedation mcg [facility] Cuauhtemoc Pelayo RN, MD 10:19:00 Versed I.V. 1 mg Canelo Buffie for sedation [facility] Cuauhtemoc Pelayo RN, MD 10:19:03 Fentanyl I.V. 50 Canelo Buffie for sedation mcg [facility] Cuauhtemoc Pelayo RN, MD 10:25:01 Versed I.V. 0.5 Canelo Buffie for sedation mg [facility] Cuauhtemoc Pelayo RN, MD 10:25:07 Fentanyl I.V. 25 Canelo Holleyie for sedation mcg [facility] Cuauhtemoc Pelayo RN, MD 10:26:31 Heparin Bolus I.V. 4000 Canelo Carbajal for verif ied units St uCauhtemoc Pelayo RN anticoagulation with dr MD cain Procedure Log Time Note 9:32:29 Informed consent obtained and on chart 9:32:41 Diagnostic Cath Status : Elective 9:45:03 Procedure Status Elective Heart Cath (OP). 9:45:04 Time tracking: Regular hours (M-F 7:00 - 5:00) 9:45:07 Plan of Care:Hemodynamics will remain stable., Cardiac rhythm will remain stable., Comfort level will be maintained., Respiratory function will remain adequate., Patient/ family verbilizes understanding of procedure., Procedure tolerated without complication., Recovers from procedure without complications.. 9:45:09 Monica SANTOS(R) sent for patient. Start room use. 9:46:18 H&P Date Dictated: 05/09/2020 New H&P dictated by physician.. 9:48:34 Patient allergic to Codeine 9:54:02 Patient received from Pre/Post Procedure Room to CCL 1 Alert and oriented. Tansferred to table in Supine position. 9:54:05 Warm blankets applied, and freddy hugger turned on for patient comfort. 9:54:35 Snore? Yes 9:54:38 Sleep apnea? No 9:54:42 Patient diabetic? Yes. 9:54:44 If diabetic: On Metformin? No 9:54:53 Is patient on blood thinner?Yes 9:54:57 ACC The patient was administered the following blood thiners within the last 24 hours: ACCPlavix 9:55:16 Previous problem with sedation/anesthesia? Yes ? 9:55:23 Dentures? No ? 9:55:28 Correct patient and procedure confirmed by team. 9:55:29 ECG and BP/O2 sat monitors applied to patient. 9:59:55 Vital chart was started 9:59:58 Baseline sample Acquired. 10:00:03 Rhythm: sinus rhythm 10:00:06 Full Disclosure recording started 10:00:13 Family in patients room. 10:00:28 Patient pain scale 0/10 ?. 10:00:39 IV patent on arrival in left forearm with 0.9% NaCl at [facility]. 10:04:05 Oxygen 2 l/min etCO2 Nasal cannula was administered by Raven Pelayo RN; used for procedure; Verbal order read back and verified. 10:04:14 Lidocaine 2% 20ml vial added to field was administered by Canelo Rob MD; for local anesthetic; Verbal order read back and verified. 10:04:21 Heparin Flush Bag (1000units/500ml NS) 2 bags added to field was administered by Canelo Rob MD; used for procedure; Verbal order read back and verified. 10:04:32 0.9% NaCl 100 ml/hr I.V. was administered by Raven Pelayo RN; Per physician; Verbal order read back and verified. 10:04:32 Lab Result : BUN 34 mg/dl 10:04:32 Lab Result : Creatinine 1.6 mg/dl 10:04:32 Lab Result : eGFR NONAFRICAN 36 ml/min 10:04:32 Lab Result : Hemoglobin 12.9 g/dl 10:04:38 Plavix 75 mg P.O. was administered by Raven Pelayo RN; Per physician; Verbal order read back and verified. 10:04:54 Lab results completed and on chart. 10:05:04 Right groin area was prepped with chlora-prep and draped in sterile fashion 10:05:06 Alarms reviewed by R. N. 10:05:08 Sharps counted by scrub and verified by R.N. 10:05:11 Physician paged 10:06:12 Zofran 4 mg I.V. was administered by Raven Pelayo RN; Per physician; pt has nausea with sedation medications Verbal order read back and verified. 10:07:53 Arrival Date: 05/09/2020 12:00:00 AM 10:08:31 Patient Height : 62 inches 10:08:34 Patient Weight : 136 lbs 10:08:46 Insurance Payor : Private health insurance, State-specific plan 10:09:02 Procedure type changed to Cath procedure, Diagnostic procedure, LHC, Coronaries w/Grafts, Sedation Charges, Moderate Sedation up to 15 minutes, PCI procedure, PTCA, PTCA Initial, Hemochron ACT Test 10:14:31 --------ALL STOP TIME OUT------ 10:14:32 Final Timeout: patient, procedure, and site verified with staff and physician. All members of the team are in agreement. 10:14:34 Right groin site verified by team. 10:14:38 Fire Safety Assessment: A--An alcohol-based skin anteseptic being used preoperatively., C--Open oxygen or nitrous oxide is being used., D--An ESU, laser, or fiber-optic light is being used. 10:14:40 Physical assessment completed. ASA score P 2 - A patient with mild systemic disease as per Canelo Rob MD. 10:14:55 3b) 30-44 Moderately reduced kidney function. 10:14:58 Maximum allowable contrast dose (3.7 X eGFR X 0.75)99 ml. 10:15:02 Sedation plan: IV Moderate Sedation Medication:Versed, Fentanyl 10:15:19 Versed 1 mg I.V. was administered by Raven Pelayo RN; for sedation; Verbal order read back and verified. 10:15:26 Fentanyl 50 mcg I.V. was administered by Raven Pelayo RN; for sedation; Verbal order read back and verified. 10:15:31 Use device set Femoral Dx 10:15:33 ACIST Syringe (01227) opened to sterile field. 10:15:34 Bag Decanter () opened to sterile field. 10:15:35 ACIST Manifold (37339) opened to sterile field. 10:15:36 ACIST Hand Control (34364) opened to sterile field. 10:15:37 Tegaderm 4 x 4 (1626W) opened to sterile field. 10:15:38 Medline Cath Pack ([id number]) opened to sterile field. 10:15:39 DIAGNOSTIC Multipack 5Fr catheter set (DB7747) opened to sterile field. 10:15:41 SHEATH 5FR Artesia (YJT857) opened to sterile field. 10:15:42 EMERALD Guide Wire (502-241) opened to sterile field. 10:16:59 Procedure started. 10:17:08 Local anesthetic to right femoral artery with Lidocaine 2% by Canelo Rob MD.INITIAL ACCESS ONLY 10:17:23 A 5 Fr sheath was inserted into the Right Femoral artery 10:18:29 A MULTIPACK JL 4.0 5Fr catheter was advanced over the wire and used for Procedure. 10:19:00 Versed 1 mg I.V. was administered by Raven Pelayo RN; for sedation; Verbal order read back and verified. 10:19:03 Fentanyl 50 mcg I.V. was administered by Raven Pelayo RN; for sedation; Verbal order read back and verified. 10:20:37 LCA angiography performed. 10:20:39 Catheter removed. 10:20:48 A MULTIPACK 3DRC 5Fr catheter was advanced over the wire and used for Procedure. 10:20:53 RCA angiography performed. 10:20:55 POWELL to LAD angiography performed. 10:21:42 Catheter removed. 10:21:53 A MULTIPACK Pigtail 5 Fr catheter was advanced over the wire and used for Ventriculography. 10:21:58 LV gram done using TEIXEIRA 10:23:54 EF : 55 % 10:23:59 Catheter removed. 10:25:01 Versed 0.5 mg I.V. was administered by Raven Pelayo RN; for sedation; Verbal order read back and verified. 10:25:06 GUIDE 6FR XBLAD 3.5 catheter ([id number]) opened to sterile field. 10:25:07 Fentanyl 25 mcg I.V. was administered by Raven Pelayo RN; for sedation; Verbal order read back and verified. 10:25:07 SHEATH 6FR [place] (ARW254) opened to sterile field. 10:25:07 WHISPER 300cm guide wire ([id number]) opened to sterile field. 10:25:09 INFLATOR Merit BasixCompak (FY6443) opened to sterile field. 10:25:22 Sheath upsized to a 6 Fr Short. 10:26:20 Pre PCI Site: [place] mCirc has 90% stenosis. 10:26:31 Heparin Bolus 4000 units I.V. was administered by Raven Pelayo RN; for anticoagulation; verified with dr cain Verbal order read back and verified. 10:26:47 6 Fr XBLAD3.5 guide catheter was inserted over the wire 10:28:49 Whisper wire advanced. 10:31:53 Inflate balloon Inflation number: 1 A Regroup Therapyec Rx 3.0 x 14 balloon was prepped and advanced across the Mid CX 90, then inflated to 8 JJ for 0:10 (min:sec) 0. 10:32:16 multi inflations 10:38:08 Balloon removed over the wire. 10:38:09 Wire removed. 10:38:10 Guide catheter removed. 10:38:24 EXOSEAL 6Fr (EX600) opened to sterile field. 10:39:33 Sheath removed intact; hemostasis achieved with Exoseal to the Right Femoral artery. 10:39:35 Procedure ended.(Physican Out) 10:39:48 Fluoroscopy time 06.10 minutes. 10:39:52 Fluoroscopy dose: 455 mGy 10:39:52 Flurop Dose total: 455 10:39:58 Dose Area Product 22779 mGy/cm. 10:40:04 Contrast amount:Isovue 300 102ml. 10:40:07 Maximum allowable dose exceeded? Yes. 10:40:10 Insertion/operative site no bleeding no hematoma. 10:40:14 Post-op/insertion site Right Femoral artery dressed using a 4 x 4 and Tegaderm. 10:40:19 Post Procedure Pulses reassessed and unchanged 10:40:48 Post-procedure physical assessment completed. ASA score P 2 - A patient with mild systemic disease as per Canelo Rob MD. 10:40:51 Post procedure rhythm: unchanged. 10:40:54 Estimated blood loss: 10 ml 10:40:56 Post procedure instruction explained to patient.Patient verbalizes understanding. 10:42:06 Procedure and supply charges have been captured, reviewed, submitted and are correct. 10:43:21 Procedure Complication : No complications 10:43:23 Vital chart was stopped 10:43:30 [facility] Findings: MVD- PCI performed (see procedure note) 10:43:37 See physician's report for complete and final results. 10:43:39 ACT drawn and resulted at 224 seconds. (normal therapeutic range 180-240 seconds). 10:43:39 Report given to Pre/Post Procedure Room. 10:43:41 Patient transfered to Pre/Post Procedure Room with Stretcher. 10:43:43 Procedure ended. 10:43:43 Full Disclosure recording stopped 10:43:46 End room use (Document Last) Intervention Summary Intervention Notes Time ActionType Lesion and Equipment Action# Pressure Duration Attributes Used 10:31:53 Inflate Mid CX Mozec Rx 1 8 00:10 balloon 3.0 x 14 balloon Device Usage Item Name Manufacture Quantity Catalog Hospital Part Current Minima l Lot# / Number Charge Number Stock Stock Serial# Code ACIST Acist 1 69234 822685 291941 526516 20 Syringe Medical (13507) Systems Inc Bag Microtek 1 2001S 322233 69000 283622 5 Decanter Medical Inc. (2001S) ACIST Acist 1 83199 318168 542841 857067 5 Manifold Medical (58356) Systems Inc ACIST Hand Acist 1 51212 482848 314067 828206 5 Control Medical (51800) Systems Inc Tegaderm 4 3M 1 1626W 783334 448496 805476 5 x 4 (1626W) Medline Medline 1 [id number] 866981 74502 381806 5 Cath Pack ([id number]) DIAGNOSTIC Cardinal 1 DM3449 803719 07411 850083 30 Multipack Health 5Fr catheter set (UM4758) SHEATH 5FR Terumo 1 IOS752 235837 311002 262004 5 [place] (MCP739) EMERALD Cardinal 1 502-455 528708 927277 844342 5 Guide Wire Health (502455) MULTIPACK Cardinal 1 239430 5 JL 4.0 5Fr Health catheter MULTIPACK Cardinal 1 550921 5 3DRC 5Fr Health catheter MULTIPACK Cardinal 1 420577 5 Pigtail 5 Health Fr catheter GUIDE 6FR Cardinal 1 [id number] 164550 704362 379147 10 XBLAD 3.5 Health catheter (04295892) SHEATH 6FR Terumo 1 IKD666 683333 362513 648854 40 [place] (LVG017) WHISPER Matute 1 [id number] 036612 299380 673281 5 300cm guide Vascular wire (7368327JD) INFLATOR Merit 1 CI3372 741692 029343 217376 15 [facility] Medical BasixCompak (FW6713) Mozec Rx Cardinal 1 [id number] 270214 [id number] 419097 5 UMOE03 3.0 x 14 Health balloon EXOSEAL 6Fr Cardinal 1 EX600 683807 305719 884489 10 (EX600) Health Signature Audit [place] Stage Time Signature Unsigned Intra-Procedure 05/09/2020 Maral Bautista 10:44:18 AM RT(R) Intra-Procedure 05/09/2020 Raven Pelayo RN 10:44:50 AM Intra-Procedure 05/09/2020 Canelo Omer 10:45:11 AM Cuauhtemoc PRASAD [facility] [address] [place] [address]
[2020-05-09] MEDS ORDERED: SYNTHROID75 MCG PO (09:15)
[2020-05-09] MEDS ORDERED: CRESTOR20 MG PO (09:16)
[2020-05-09] MEDS ORDERED: CYCLOBENZAPRINE10 MG PO (09:16)
[2020-05-09] MEDS ORDERED: TOPAMAX50 MG PO (09:17)
[2020-05-09] MEDS ORDERED: MAXALT10 MG PO (09:18)
[2020-05-09] MEDS ORDERED: TOPROL XL25 MG PO (09:21)
[2020-05-09 09:37] VITALS: BP 100/67; Ht 177.8 cm; Wt 64.3 kg
[2020-05-09 09:44] LABS: BASOPHILS 0.2 % (0-2); HEMATOCRIT 39.6 % (36.0-48.0); HEMOGLOBIN 12.9 g/dL (12-16); LYMPHOCYTES 32.8 % (15-50); MCH 28.5 pg (26.0-34.0); MCHC 32.6 g/dL (31.0-37.0); MCV 87.6 fL (80.0-100.0); MEAN PLATELET VOLUME 10.5 fL (7.4-10.4); MONOCYTES 7.5 % (2-11); NEUTROPHILS 57.5 % (40-80); PLATELET COUNT 158 10x3/uL (130-400); RBC 4.52 10x6/uL (4.00-5.40); RDW 12.9 % (11.5-14.5); WBC 5.1 10x3/uL (4.8-10.8)
[2020-05-09 10:02] LABS: ANION GAP 11.2 mmol/L (8-16); CALCIUM 9.3 mg/dL (8.5-10.1); CHOL - HDL RATIO 2.4 ratio (2.3-4.1); CREATININE - SERUM 1.6 mg/dL (0.6-1.3); LDL-HDL RATIO 1.3 ratio (1.5-3.5); POTASSIUM - SERUM 4.2 mmol/L (3.5-5.1)
--- NOTE | 2020-05-09 10:51 | NUR ---
PT ARRIVED BY STRETCHER. PLACED ON MONITORS. ASSESSMENT COMPLETED. VSS AT THIS TIME. CALL LIGHT WITHIN REACH. FAMILY AT BEDSIDE.
--- NOTE | 2020-05-09 11:05 | NUR ---
RIGHT GROIN DRESSING C/D/I. NO S/S OF HEMATOMA NOTED. CALL LIGHT WITHIN REACH. FAMILY AT BEDSIDE. VSS AT THIS TIME.
--- NOTE | 2020-05-09 11:22 | HP ---
PATIENT: MARK VÁSQUEZ MEDICAL RECORD: [id number] ACCOUNT: [id number] LOCATION:[place] : 65 ADMISSION DATE: 05/09/20 PCP: ELLEN RAMOS DO HISTORY AND PHYSICAL EXAMINATION HISTORY OF PRESENT ILLNESS: A 54-year-old female with a known history of coronary artery disease, most recently intervention of the circumflex on the right after loss of bypass grafts. Had rapidly progressive angina over the past 2 weeks pressing to rest symptomology. Mitigating factor is diabetic autonomic neuropathy with marked orthostasis making choices for antianginal somewhat difficult. She is brought for visualization of anatomy, intervention based on above. PAST MEDICAL HISTORY: Includes, 1. History of diabetes mellitus with autonomic neuropathy. 2. Dyslipidemia. 3. Hypothyroidism, on replacement. PHYSICAL EXAMINATION: GENERAL: Pleasant female in no acute distress, appears stated age. HEENT: Normocephalic, atraumatic. NECK: No JVD or bruit. HEART: Regular. A 2/6 systolic ejection murmur. LUNGS: Good excursion. ABDOMEN: Soft, nontender. EXTREMITIES: Pulses 2+ with no edema. IMPRESSION: 1. Class IV angina. Unable to tolerate further medications. 2. Autonomic neuropathy. PLAN: For angiography, intervention based on above. TRANSINT:[id number] Voice Confirmation ID: [id number] DOCUMENT ID: [id number] STEVE LÓPEZ MD at 1122 CC: [id number] DICTATION DATE: 05/09/20 0956 DOCTOR OF VETERINARY MEDICINE: 05/09/20 1010 [facility] [address] [place] [address]
--- NOTE | 2020-05-09 11:35 | NUR ---
PT RESTING COMFORTABLY. VSS. RIGHT GROIN DRESSING C/D/I. NO S/S OF HEMATOMA NOTED. CALL LIGHT WITHIN REACH. VSS AT THIS TIME. FAMILY AT BEDSIDE.
--- NOTE | 2020-05-09 11:55 | NUR ---
PT RESTING COMFORTABLY. VSS. RIGHT GROIN DRESSING C/D/I. NO S/S OF HEMATOMA NOTED. CALL LIGHT WITHIN REACH. VSS. PT DENIES NAUSEA/PAIN AT THIS TIME. TOLERATING SIPS OF WATER.
--- NOTE | 2020-05-09 12:30 | NUR ---
PT RESTING COMFORTABLY. VSS. RIGHT GROIN DRESSING C/D/I. NO S/S OF HEMATOMA NOTED. CALL LIGHT WITHIN REACH. VSS AT THIS TIME.
--- NOTE | 2020-05-09 13:30 | NUR ---
RIGHT GROIN DRESSING C/D/I. NO S/S OF HEMATOMA NOTED. CALL LIGHT WITHIN REACH. HEAD OF BED INC TO 30 DEGREES. TOLERATED WELL. SET UP WITH PEANUT BUTTER AND CRACKERS AND A DIET SODA AT THIS TIME. DENIES NAUSEA.
--- NOTE | 2020-05-09 13:30 | NUR ---
RIGHT GROIN DRESSING C/D/I. NO S/S OF HEMATOMA NOTED. CALL LIGHT WITHIN REACH. VSS AT THIS TIME. CALL LIGHT WITHIN REACH. NO NEEDS AT THIS TIME.
--- NOTE | 2020-05-09 14:10 | NUR ---
RIGHT GROIN DRESSING C/D/I. NO S/S OF HEMATOMA NOTED. CALL LIGHT WITHIN REACH. VSS. PIV D/C'D WITH CATH TIP INTACT. TOLERATED WELL. PT INSTRUCTED TO GET UP AND DRESSED AT THIS TIME. FAMILY AT BEDSIDE TO ASSIST.
--- NOTE | 2020-05-09 14:20 | NUR ---
DISCUSSED DISCHARGE INSTRUCTIONS WITH PT AND PT'S FAMILY. THEY VOICED UNDERSTANDING.
--- NOTE | 2020-05-09 14:25 | NUR ---
PT AMBULATED TO RESTROOM. VOIDED WITHOUT DIFFICULTY. STEADY GAIT NOTED.
--- NOTE | 2020-05-09 14:30 | NUR ---
PT TAKEN DOWN TO VEHICLE BY WHEELCHAIR. NO S/S OF DISTRESS NOTED. ALL BELONGINGS AND PAPERWORK IN HAND.
== END 2020-05-09 14:30 | disposition home or self-care (01) ==
LOC: D.CATH 08:52
PROVIDERS: ATTEND Internal Medicine Interventional Cardiology
DX: I25.10 Atherosclerotic heart disease of native coronary artery without angina pectoris (principal); E78.5 Hyperlipidemia, unspecified; E03.9 Hypothyroidism, unspecified; E10.40 Type 1 diabetes mellitus with diabetic neuropathy, unspecified; Z79.4 Long term (current) use of insulin

== ENCOUNTER 2020-07-30 10:02 | Emergency (ER) | payer OTHER ==
[~2020-07-30] VITALS: Ht 177.8 cm; Wt 62.7 kg
[~2020-07-30 10:02] MED LIST changes: +CRESTOR20 MG PO; +CYCLOBENZAPRINE10 MG PO; +MAXALT10 MG PO; +SYNTHROID75 MCG PO; +TOPAMAX50 MG PO; +TOPROL XL25 MG PO
[2020-07-30 10:07] VITALS: Ht 177.8 cm; Wt 62.7 kg
[2020-07-30 11:15] LABS: BASOPHILS 0.4 % (0-2); EOSINOPHILS 2.8 % (0-7); HEMATOCRIT 38.8 % (36.0-48.0); LYMPHOCYTES 38.3 % (15-50); MCH 28.8 pg (26.0-34.0); MCHC 33.5 g/dL (31.0-37.0); MCV 85.8 fL (80.0-100.0); MEAN PLATELET VOLUME 10.9 fL (7.4-10.4); MONOCYTES 7.4 % (2-11); NEUTROPHILS 51.1 % (40-80); PLATELET COUNT 132 10x3/uL (130-400); RBC 4.52 10x6/uL (4.00-5.40); WBC 2.8 10x3/uL (4.8-10.8)
[2020-07-30 11:16] LABS: ANION GAP 8.8 mmol/L (8-16); CALCIUM 9.6 mg/dL (8.5-10.1); CARBON DIOXIDE 29.3 mmol/L (21.0-32.0); CREATININE - SERUM 1.3 mg/dL (0.6-1.3); POTASSIUM - SERUM 4.1 mmol/L (3.5-5.1)
[2020-07-30 11:21] LABS: ALBUMIN 3.8 g/dL (3.4-5.0); BILIRUBIN - TOTAL 0.47 mg/dL (0.2-1.3); PROTEIN - SERUM 7.7 g/dL (6.4-8.2)
[2020-07-30] MEDS ORDERED: AUGMENTIN 875-11 TAB PO (11:42)
[2020-07-30 12:46] VITALS: BP 180/84
--- NOTE | 2020-07-31 07:36 | PRO ---
PATIENT:MARK VÁSQUEZ MEDICAL RECORD: [id number] : 65 LOCATION:D.ER ADMISSION DATE: 07/30/20 PROCEDURE PERFORMED BY: DUSTIN LINCOLN DO DATE OF PROCEDURE: 07/30/2020 PROCEDURE PERFORMED: Removal of foreign body of the right distal phalanx, middle finger. INDICATIONS: Ms. Vásquez is a 55-year-old female who was sewing and had the sewing needle go through the nail of her right middle finger. There was an attempt to push it through and pull it out and the needle broke off. She came to the ER. X-ray was taken, seen that the needle was still partially stuck in there and the thread was out through the nail. I informed her we need to pull that out and that she should heal just fine and she will be at risk for infection. We will watch it closely. She will be home on antibiotics. She was given a gram of Ancef and tetanus in the ER and she signed the consent for removal. SURGEON: Dustin Lincoln DO DESCRIPTION OF PROCEDURE: The patient was given a digital block after prepping the base of the middle finger with alcohol. Approximately, 2.5 mL of 1% lidocaine was placed on the radial and ulnar sides of the digit. Once the finger was properly anesthetized, she did not have feeling in distal tip. I prepped it with Betadine and then draped it and made an incision over the palmar midline of the middle finger with a #15 blade scalpel and with a needle guard driver grabbed the tip of the foreign body or the needle as a matter of fact and pulled it through and pulled it out. I held pressure for bleeding control and once that had slowed down, I dressed it with Adaptic, 4 x 4, and a tube gauze. She tolerated the procedure well. She was then sent home on Augmentin. She will follow up with me in 1 week. NTS:[id number] Voice Confirmation ID: [id number] DOCUMENT ID: [id number] DUSTIN LINCOLN DO at 0736 CC: [id number] DICTATION DATE: 07/30/20 1212 SLASHER HAND: 07/30/20 2154 [facility] ER 07/30/20 [facility] [address] [facility]
== END 2020-07-30 12:46 | disposition home or self-care (01) ==
LOC: D.ER 10:02
PROVIDERS: Family Medicine
DX: S60.452A Superficial foreign body of right middle finger, initial encounter (principal); X58.XXXA Exposure to other specified factors, initial encounter; I10 Essential (primary) hypertension; Z95.5 Presence of coronary angioplasty implant and graft; I25.10 Atherosclerotic heart disease of native coronary artery without angina pectoris; Z95.1 Presence of aortocoronary bypass graft; E11.9 Type 2 diabetes mellitus without complications; Z79.84 Long term (current) use of oral hypoglycemic drugs